=== PATIENT | male | born 1995 ===

== ENCOUNTER 2020-11-29 16:18 | Outpatient (REF) | payer OTHER, SELFPAY ==
[2020-11-29 17:19] LABS: Hematocrit 45.6 % (42-52); Mean Corpuscular HGB Conc 32.9 g/dl (31.0-36.0); Mean Corpuscular Hemoglobin 29.1 pg (27.0-33.0); Mean Corpuscular Volume 88.5 fL (80-98); Mean Platelet Volume 9.7 fL (9.4-12.4); Platelet Count 378 X10*3/uL (160-400); Red Blood Count 5.15 X10*6/uL (4.60-5.80); White Blood Count 6.3 X10*3/uL (4.8-10.8)
[2020-11-29 17:36] LABS: Anion Gap 15 (12-20); Blood Urea Nitrogen 12 mg/dL (9-16); C Reactive Protein 0.39 mg/dL (< or = 0.50); Calcium 10.1 mg/dL (8.4-10.2); Carbon Dioxide 28 mmol/L (22-29); Chloride 102 mmol/L (96-108); Estimated Glomerular Filt Rate > 60; Glucose Random 95 mg/dL (60-115); Potassium 4.5 mmol/L (3.3-5.1); Rheumatoid Factor < 15.0 IU/mL (<15.0); Sodium 140 mmol/L (135-145)
[2020-11-29 18:21] LABS: Erythrocyte Sedimentation Rate 7 MM/HR (0-15)
[2020-11-30 22:27] LABS: Anti Nuclear Antibody Screen POSITIVE (NEGATIVE)
[2020-12-01 00:01] LABS: Cyclic Citrullinated Peptide <16 UNITS
== END 2020-11-29 16:19 | disposition home or self-care (01) ==
LOC: HO.LAB 16:18
PROVIDERS: PCP Physician Assistant; Visit Provider Physician Assistant
DX: M54.2 Cervicalgia (principal); M54.5 Low back pain; M25.50 Pain in unspecified joint; I10 Essential (primary) hypertension
CPT/HCPCS: 36415; 80048; 85027; 85652; 86038; 86039; 86140; 86200; 86431

== ENCOUNTER 2024-05-15 00:52 | Emergency (ER) | payer OTHER, SELFPAY ==
[2024-05-15 01:07] VITALS: BP 141/93; PULSE 86; RESP 16; TEMP 37.4; O2SAT 98; BMI 26.6
--- NOTE | 2024-05-15 01:37 | PC.NURSE ---
Pt brought to [facility] for treatment assumed care of pt at this time. Pt A&Ox3 skin pwd respirations even unlabored. Endorsing upper abd pain x months, intermittent with associated N/V and tarry stools. Denies fever, denies abd pain. Denies ETOH or blood thinner use. Hx GERD states he hasn't had insurance for a while therefore hasn't sought treatment. Awaiting primary provider tanal, aware of plan of care.
--- NOTE | 2024-05-15 02:56 | ED_ITS ---
HPI - General Adult General Chief complaint: General Medical Stated complaint: blood in stool, gen med Time Seen by Provider: 05/15/24 02:32 Source: patient Mode of arrival: ambulatory Limitations: no limitations History of Present Illness ED Provider: HPI narrative: Patient's history of chronic gastritis on omeprazole complaining of dark stool for last several months no vomiting does have epigastric pain off and on no shortness a breath the patient does have history of hemorrhoids no history of bleeding ulcer patient never had endoscopy in the past Related Data Previous Rx's ?Medication ?Instructions ?Recorded ondansetron HCl 4 mg tablet 4 mg PO Q8H PRN nausea and 04/09/22 vomiting 7 days #21 tabs pantoprazole 40 mg tablet,delayed 40 mg PO DAILY 30 days #30 tabs 08/21/22 release sucralfate 1 gram tablet 1 g PO TID #90 tabs 05/15/24 Allergies Allergy/AdvReac Type Severity Reaction Status Date / Time No Known Allergies Allergy Verified 05/15/24 01:14 Review of Systems 2 Review of Systems: Yes all other systems are reviewed and are negative PMFSH Past Medical History Medical History Asthma GERD (gastroesophageal reflux disease) Social History Social History Housing: Apartment Patient Tobacco Use Status: Never used Tobacco e-Cigarette/Vaping Use: Never Used Second Hand Smoke Exposure: No service: No Current occupational status: employed 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 Oriented X3. No acute distress. Eyes: No pallor or icterus ENT: Pharynx normal. Oral Mucosa moist Neck: Normal inspection. Neck supple. CVS: Normal heart rate and rhythm. Pulses normal. Respiratory: No respiratory distress. Equal air entry bilateral, no wheezing/rales/rhonchi Abdomen: Soft and nontender. Bowel sounds are present, no mass palpable, no CVA tenderness rectal: No hemorrhoids palpable no stool on the finger no active bleeding Skin: Skin warm and dry. Normal skin color. Normal skin turgor. Extremities: No lower extremity edema. No calf tenderness Neuro: Oriented X 3. No motor deficit. No sensory deficit.No cerebellar signs , cranial nerves II-XII intact Medical Decision Making Medical Decision Making [facility] Narrative: Patient's H&H stable likely dark stool is from the food he is eating advised to follow with GI Lab Data [facility] Lab Attestation statement: I reviewed the patient's lab results. 05/15/24 03:17 05/15/24 03:17 Labs: Lab Results 05/15/24 Range/Units 03:17 WBC 9.5 (4.8-10.8) X10*3/uL RBC 5.07 (4.60-5.80) X10*6/uL Hgb 14.9 (14.0-18.0) g/dl Hct 43.7 (42.0-52.0) % MCV 86.2 (80.0-98.0) fL MCH 29.4 (27.0-33.0) pg MCHC 34.1 (31.0-36.0) g/dl RDW 12.0 (11.0-16.0) % Plt Count 347 (160-400) X10*3/uL MPV 9.6 (9.4-12.4) fL Immature Gran % (Auto) 1.8 H (0.0-0.4) % Neut % (Auto) 66.1 (45-73) % Lymph % (Auto) 23.3 (20-40) % [place] % (Auto) 6.8 (2-11) % Eos % (Auto) 1.2 (0-4) % Baso % (Auto) 0.8 (0-2) % Lymph # (Auto) 2.2 (1.2-4.9) X10*3/uL [place] # (Auto) 0.7 (0.1-1.2) X10*3/uL Eos # (Auto) 0.1 (0.0-0.4) X10*3/uL Baso # (Auto) 0.1 (0.0-0.2) X10*3/uL Abs Immat Gran (auto) 0.17 H (0.00-0.03) X10*3/uL Absolute Neuts (auto) 6.3 (2.0-8.3) x10*3/uL Absolute Nucleated RBC 0.000 (0.0-0.012) X10*3/uL Nucleated RBC % (auto) 0.0 (0.0-0.2) /100WBC Sodium 141 (135-145) mmol/L Potassium 4.1 (3.3-5.1) mmol/L Chloride 104 (96-108) mmol/L Carbon Dioxide 26 (22-29) mmol/L Anion Gap 15 (12-20) BUN 13 (9-16) mg/dL Creatinine 0.79 (0.5-1.4) mg/dL Estim Creat Clear Calc 117.8 Estimated GFR > 60 Random Glucose 92 (60-115) mg/dL Calcium 9.7 (8.4-10.2) mg/dL Total Bilirubin 0.5 (0.0-1.0) mg/dL AST 61 H (5-37) U/L ALT 115 H (0-40) U/L Alkaline Phosphatase 75 (39-117) U/L Total Protein 8.2 H (6.5-8.0) g/dL Albumin 4.8 (3.5-5.0) g/dL Lipase 20 (8-78) U/L Discharge Plan Discharge Clinical Impression: Gastritis Patient Disposition: Home, Self-Care Instructions: Gastritis (ED) Additional Instructions: Continue your Protonix Sucralfate 1 tablet before meals as prescribed Follow with segment assembler Prescriptions: New sucralfate 1 gram tablet 1 g PO TID Qty: 90 0RF No Action ondansetron HCl 4 mg tablet 4 mg PO Q8H PRN (Reason: nausea and vomiting) 7 Days Qty: 21 3RF pantoprazole 40 mg tablet,delayed release (DR/EC) 40 mg PO DAILY 30 Days Qty: 30 0RF Referrals: Derrick López MD [Physician] - 2 weeks Stand Alone Forms: Work/School Release Interventions: ED Discharge Assessment Last Done: 05/15/24 04:31 Discharge Date/Time: 05/15/24 04:33 Print Language: Fijian
[2024-05-15 03:17] VITALS: BP 139/88; PULSE 80; RESP 18; TEMP 36.9; O2SAT 99
[2024-05-15 03:26] LABS: Basophils Absolute Auto 0.1 X10*3/uL (0.0-0.2); Basophils Percent Auto 0.8 % (0-2); Eosinophils Absolute Auto 0.1 X10*3/uL (0.0-0.4); Eosinophils Percent Auto 1.2 % (0-4); Hematocrit 43.7 % (42.0-52.0); Hemoglobin 14.9 g/dl (14.0-18.0); Imm Gran Abs Auto 0.17 X10*3/uL (0.00-0.03); Imm Gran Pct Auto 1.8 % (0.0-0.4); Lymphocytes Absolute Auto 2.2 X10*3/uL (1.2-4.9); Lymphocytes Percent Auto 23.3 % (20-40); MANUAL DIFF FLAG NO; Mean Corpuscular HGB Conc 34.1 g/dl (31.0-36.0); Mean Corpuscular Hemoglobin 29.4 pg (27.0-33.0); Mean Corpuscular Volume 86.2 fL (80.0-98.0); Mean Platelet Volume 9.6 fL (9.4-12.4); Monocytes Absolute Auto 0.7 X10*3/uL (0.1-1.2); Monocytes Percent Auto 6.8 % (2-11); Neutrophils Absolute Auto 6.3 x10*3/uL (2.0-8.3); Neutrophils Percent Auto 66.1 % (45-73); Platelet Count 347 X10*3/uL (160-400); Red Blood Count 5.07 X10*6/uL (4.60-5.80); White Blood Count 9.5 X10*3/uL (4.8-10.8)
[2024-05-15 03:46] LABS: Alanine Aminotransferase 115 U/L (0-40); Albumin Level 4.8 g/dL (3.5-5.0); Alkaline Phosphatase 75 U/L (39-117); Anion Gap 15 (12-20); Aspartate Amino Transferase 61 U/L (5-37); Bilirubin Total 0.5 mg/dL (0.0-1.0); Blood Urea Nitrogen 13 mg/dL (9-16); Calcium 9.7 mg/dL (8.4-10.2); Carbon Dioxide 26 mmol/L (22-29); Chloride 104 mmol/L (96-108); Creatinine Clr Calc Pharmacy 117.8; Estimated Glomerular Filt Rate > 60; Glucose Random 92 mg/dL (60-115); Lipase 20 U/L (8-78); Potassium 4.1 mmol/L (3.3-5.1); Sodium 141 mmol/L (135-145); Total Protein 8.2 g/dL (6.5-8.0)
[2024-05-15 04:31] VITALS: BP 139/88; PULSE 80; RESP 18; TEMP 36.9; O2SAT 99
== END 2024-05-15 04:33 | disposition home or self-care (01) ==
PROVIDERS: Emergency Provider Internal Medicine; PCP Physician Assistant
DX: K29.70 Gastritis, unspecified, without bleeding (principal); K92.1 Melena; R10.13 Epigastric pain
CPT/HCPCS: 36415; 80053; 83690; 85025; 99283; 99284

== ENCOUNTER → 2024-05-19 14:00 | Outpatient (BNVA) | payer OTHER, SELFPAY | PROVIDERS: PCP Physician Assistant; Visit Provider Physician Assistant | DX: K27.9 Peptic ulcer, site unspecified, unspecified as acute or chronic, without hemorrhage or perforation (principal); R19.5 Other fecal abnormalities; M25.50 Pain in unspecified joint | CPT/HCPCS: 96127; 99212 ==

== ENCOUNTER 2024-07-20 13:07 | Outpatient (AMB) | payer OTHER, SELFPAY ==
[2024-07-20 13:12] VITALS: BP 133/83; PULSE 75; BMI 31.5
--- NOTE | 2024-07-20 13:12 | MHC.OFFVIS ---
Vital Signs 07/20/24 13:12 Height 5 ft 5 in Weight 189 lb 9.561 oz BMI 31.5 BP 133/83 Blood Pressure Location Lt brachial Position Sitting Pulse 75 Intake Visit Reasons: Peptic Ulcer & Fecal Abnormalities Intake Note: Enrique presents in the office as a new patient. CC: States that he has always had issues with his gut. He has not had a solid BM in over a month. Pains in the abdomen - everything he eats he will have pains and diarrhea 15 minutes after. No blood at the moment but at one point there was. Molded Grid And Parts Inspector Required: No Allergies shellfish derived Allergy (Mild, Verified 07/20/24 13:21) Unknown HPI HPI Peptic Ulcer & Fecal Abnormalities: Details: HPI 29 yr old m here for assessment He had noted acid reflux issues for few years was on PPI he was a heavy drinker and smoker in past--no longer doing these for 1 yr he had black stools and admission in the past, but never had EGD he has noted soft stools or liquid for 1 month, worse after eating pain coming and going, throbbing he can have issues wt nausea, no blood recently, no coffee grounds he takes motrin prn, once day for 1 month no fevers he has bad joint pains in hands serenity at night, dx with RA --but not followed up with rheum ROS: Constitutional : No Weight loss, No Fever, No Chills ENT/Mouth : No sore throat, No Rhinorrhea Eyes: No Swelling, No Redness Cardiovascular : No Chest Pain, No SOB, No Edema Respiratory : No Cough, No Sputum, No Wheezing Gastrointestinal : see HPI Genitourinary : NO Dysuria, No Urinary Frequency, No Hematuria, No Urgency Musculoskeletal : + joint pain, No Myalgias, No Joint Swelling Skin : No Skin Lesions, No rash Neuro : No Weakness, No Numbness, No Dizziness, No Headache Psych : No Anxiety/Panic, No Depression Heme/Lymph: No Bruising, No Lymphadenopathy Endocrine : No Polyuria, No Polydipsia All other systems reviewed and are negative. 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 VITAL SIGNS:see workflow HEENT: Nonicteric sclerae, PERRLA, EOMI. Oropharynx clear. Moist mucous membranes. Conjunctivae appear well perfused. No thyroid mass. CHEST: Chest wall is nontender. HEART: Regular rate and rhythm without murmurs. LUNGS: Clear to auscultation bilaterally. ABDOMEN: Soft, positive bowel sounds, tender, no organomegaly.no flank tenderness SKIN: No rash, no excessive bruising, petechiae, or purpura. NEUROLOGIC: Cranial nerves II-XII intact without motor/sensory deficit. Psych: normal affect A/P: 1/ Upper abdominal pain, with abn bowel habit, strong FH of CRC, ddx: PUD, Crohns, polyps and mechanical etiology, nsaid related injury 2/ abn LFT ? 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 - Other specified abnormal findings of blood chemistry Lipase Today R7 - Other specified abnormal findings of blood chemistry Hepatitis A,B,C Profile Today - Other specified abnormal findings of blood chemistry Smooth Muscle Antibody Today - Other specified abnormal findings of blood chemistry Comprehensive Met. Panel Today K75.81 - Nonalcoholic steatohepatitis (BRUCE), R7. - Other specified abnormal findings of blood chemistry US abdomen mcnamara w elastography Today K74.60 - Unspecified cirrhosis of liver, K75.81 - Nonalcoholic steatohepatitis (BRUCE), R7. - Other specified abnormal findings of blood chemistry Soluble Liver Ag Autoantibody Today - Other specified abnormal findings of blood chemistry Hepatitis C Genotype Today - Other specified abnormal findings of blood chemistry Alpha 1 Anti-trypsin Today - Other specified abnormal findings of blood chemistry Ceruloplasmin Today - Other specified abnormal findings of blood chemistry Medications: New sodium,potassium,mag sulfates 17.5-3.13-1.6 gram (Suprep Bowel Prep Kit) DILUTE; drink 1/2 at 6-8 pm and half at 11 PM- 1AM 354 mL 0RF Refilled ondansetron 8 mg PO Q12H 10 days PRN 30 tabs 0RF nausea and vomiting K27.9 - Peptic ulcer, site unspecified, unspecified as acute or chronic, without hemorrhage or perforation Coding Level of Care Code New Pt Level 4 (09058) Diagnoses Abnormal LFTs
== END 2024-07-20 13:44 | disposition home or self-care (01) ==
LOC: HO.HGI 13:08
PROVIDERS: PCP Physician Assistant; Visit Provider Internal Medicine Gastroenterology
DX: R79.89 Other specified abnormal findings of blood chemistry (principal)
CPT/HCPCS: 99204

== ENCOUNTER → 2024-07-20 13:07 | Outpatient (BNVA) | payer OTHER, SELFPAY | PROVIDERS: PCP Physician Assistant; Visit Provider Internal Medicine Gastroenterology | DX: K75.81 Nonalcoholic steatohepatitis (NASH) (principal); R79.89 Other specified abnormal findings of blood chemistry | CPT/HCPCS: 99202 ==

== ENCOUNTER → 2024-08-11 12:57 | Outpatient (BNVA) | payer OTHER, SELFPAY | PROVIDERS: PCP Physician Assistant; Visit Provider Internal Medicine Gastroenterology ==

== ENCOUNTER 2024-08-11 13:55 | Outpatient (REF) | payer OTHER, SELFPAY ==
--- OUTSIDE RECORDS SUMMARY | 2024-08-13 16:37 | XMS_ITS | Clinical Summary ---
Author Organization [facility] Address [address] [place] [address] Phone Care Team Providers Care Dynamometer Tester Name Role Phone Quinton Casey Primary Care Provider [phone] Allergies No known active allergies Medications methocarbamoL (ROBAXIN) 750 mg tablet Take 1 tablet (750 mg total) by mouth 4 (four) times a day for 10 days. 20 each 08/13/2024 Active Encounters Date Type Department Care Team Description 08/12/2024 7:47 PM EDT - 08/13/2024 12:41 AM EDT Emergency [facility] Emergency [address] [place] [address] Lumbar strain, initial encounter (Primary Dx) Discharge Disposition: Home or Self Care from Last 3 Months Social History Tobacco Use Types Packs/Day Years Used Date Smoking Tobacco: Never Assessed Sex and Gender Information Value Date Recorded Sex Assigned at Male 08/12/2024 8:16 PM EDT Legal Sex Male 4:37 AM EST Gender Identity Male 08/12/2024 8:16 PM EDT Sexual Orientation Straight 08/12/2024 8: 16 PM EDT Last Filed Vital Signs Vital Sign Reading Time Taken Comments Blood Pressure 134/92 08/12/2024 11:10 PM EDT Pulse 80 08/12/2024 11:10 PM EDT Temperature 36.6 ??C (97.9 ??F) 08/12/2024 11:10 PM E DT Respiratory Rate 16 08/12/2024 11:10 PM EDT Oxygen Saturation 99% 08/12/2024 11:10 PM EDT Inhaled Oxygen Concentration - - Weight 84.8 kg (187 lb) 08/12/2024 6:41 PM EDT Height 165.1 cm (5' 5 ) 08/12/2024 6:41 PM EDT Body Mass Index 31.12 08/12/2024 6:41 PM EDT Plan of Treatment Health Maintenance Due Date Last Done Comments DTaP,Tdap,and Td Vaccines (1 - Tdap) 2012 Hepatitis B Vaccines (1 of 3 - 19+ 3-dose series) 2012 Depression Screening 03/18/2022 HIV Screening 03/18/2022 Hepatitis C Screening 03/18/2022 Social Influencers of Health Screening 03/18/2022 COVID-19 Vaccine (2023-2 5 season) 2023 Influenza Vaccine (Season Ended) 2024 HIB Vaccines Aged Out No longer eligi ble based on patient's age to complete this topic HPV Vaccines Aged Out No longer eligi ble based on patient's age to complete this topic Hepatitis A Vaccines Aged Out No long er eligible based on patient's age to complete this topic IPV Vaccines Aged Out No longer eligi ble based on patient's age to complete this topic MMR Vaccines Aged Out No longer eligi ble based on patient's age to complete this topic Meningococcal ACWY Vaccine Aged Out N o longer eligible based on patient's age to complete this topic Meningococcal B Vaccine Aged Out No l onger eligible based on patient's age to complete this topic Pneumococcal Vaccine: Pediat rics (0 to 5 Years) and At-Risk Patients (6 to 64 Years) Aged Out No longer eligible b ased on patient's age to complete this topic RSV Immunization Patients Un malissa 20 months Aged Out No longer eligible b ased on patient's age to complete this topic Varicella Vaccines Aged Out No longer eligible based on patient's age to complete this topic Procedures Procedure Name Priority Date/Time Associated Diagnosis Comments US RETROPERITONEAL COMPLETE STAT 08/12/2024 10:58 PM EDT CBC WITH AUTO DIFFERENTIAL STAT 08/12/2024 10:25 PM EDT [facility] URINE CULTURE TUBE STAT 08/13/19 10:25 PM EDT URINALYSIS WITH REFLEX MICROSCOPIC AND CULTURE STAT 08/12/2024 10:25 PM EDT COMPREHENSIVE METABOLIC PANEL STAT 08/12/2024 10:25 PM EDT CBC AND DIFFERENTIAL STAT 08/12/2024 10:25 PM EDT URINALYSIS WITH REFLEX MICROSCOPIC AND CULTURE STAT 08/12/2024 10:25 PM EDT from Last 3 Months Results * US Retroperitoneal Complete (08/12/2024 10:58 PM EDT) Anatomical Region Laterality Modality Body Ultrasound 08/12/2024 11:3 3 PM EDT Impressions 08/12/2024 11:33 PM EDT Impression: No significant abnormalities. This document has been electronically signed by: Kirk Ordonez MD on 08/12/2024 23:33:25 Narrative 08/12/2024 11:33 PM EDT INDICATION: pain US renal Comparison: None Findings: Right kidney 9.9 cm length. No significant focal abnormality. Left kidney 9.3 cm length. No significant focal abnormality. No bilateral hydronephrosis. Normal bilateral renal echogenicity. Urinary bladder grossly unremarkable. Bilateral ureteral jets visualized. Procedure Note Kirk Ordonez MD - 08/12/2024 INDICATION: pain US renal Comparison: None Findings: Right kidney 9.9 cm length. No significant focal abnormality. Left kidney 9.3 cm length. No significant focal abnormality. No bilateral hydronephrosis. Normal bilateral renal echogenicity. Urinary bladder grossly unremarkable. Bilateral ureteral jets visualized. IMPRESSION: Impression: No significant abnormalities. This document has been electronically signed by: Kirk Ordonez MD on 08/12/2024 23:33:25 us Henrietta NUÑEZ IMG US PROCEDURES Final Re sult * (ABNORMAL) Urinalysis with reflex microscopic and culture (08/12/2024 10:25 PM EDT) Specific [place] Urine 1.026 1.003 - 1.030 LAB URINALYSIS - AUTOMATED METHOD 08/12/2024 11:[address] [facility] pH, Urine 7.5 5.0 - 8.0 pH LAB URINALYSIS - AUTOMATED METHOD 08/12/2024 11:[address] [facility] Leukocytes, Urine Negative Negative LAB URINALYSIS - AUTOMATED METHOD 08/12/2024 11:[address] [facility] Nitrite, Urine Negative Negative LAB URINALYSIS - AUTOMATED METHOD 08/12/2024 11:[address] [facility] Protein, Urine Trace <=Trace mg/dL LAB URINALYSIS - AUTOMATED METHOD 08/12/2024 11:[address] [facility] Glucose, Urine Negative Negative mg/dL LAB URINALYSIS - AUTOMATED METHOD 08/12/2024 11:[address] [facility] Ketones, Urine Trace(A) Negative mg/dL LAB URINALYSIS - AUTOMATED METHOD 08/12/2024 11:[address] [facility] Urobilinogen, Urine 1.0 0.2 - 1.0 mg/dL LAB URINALYSIS - AUTOMATED METHOD 08/12/2024 11:[address] [facility] Bilirubin, Urine Negative Negative LAB URINALYSIS - AUTOMATED METHOD 08/12/2024 11:[address] [facility] Blood, Urine Negative Negative LAB URINALYSIS - AUTOMATED METHOD 08/12/2024 11:[address] [facility] Urine Urine specimen obtained by clean catch procedure / Unknown Non-blood Collection / Unknown 08/12/2024 10:25 PM EDT 08/12/2024 11:05 PM EDT us Henrietta NUÑEZ LAB URINE ORDERABLES Final Result [facility] [address] [place] [address], [place] [phone] * [facility] urine culture tube (08/12/2024 10:25 PM EDT) [facility] Extra Tube Hold for add-ons. 08/13/2024 1:01 AM EDT [facility] Comment:Auto resulted. Urine Urine specimen obtained by clean catch procedure / Unknown Non-blood Collection / Unknown 08/12/2024 10:25 PM EDT 08/12/2024 11:05 PM EDT us Henrietta NUÑEZ LAB URINE ORDERABLES Final Result [facility] [address] [place] [address], [place] [phone] * (ABNORMAL) CBC auto differential (08/12/2024 10:25 PM EDT) [facility] WBC 9.8 4.8 - 10.8 K/mcL LAB HEMETOLOGY METHOD 08/12/2024 11:16 PM EDT [facility] RBC 4.80 4.50 - 5.50 M/mcL LAB HEMETOLOGY METHOD 08/12/2024 11:16 PM EDT [facility] Hemoglobin 14.2 13.5 - 17.5 g/dL LAB HEMETOLOGY METHOD 08/12/2024 11:16 PM EDT [facility] Hematocrit 41.9(L) 42.0 - 54.0 % LAB HEMETOLOGY METHOD 08/12/2024 11:16 PM EDT [facility] MCV 88.2 79.0 - 98.0 FL LAB HEMETOLOGY METHOD 08/12/2024 11:16 PM EDT [facility] MCH 29.9 27.0 - 32.0 pcg LAB HEMETOLOGY METHOD 08/12/2024 11:16 PM EDT [facility] MCHC 33.9 32.0 - 37.0 g/dL LAB HEMETOLOGY METHOD 08/12/2024 11:[address] [facility] RDW 12.1 11.0 - 15.0 % LAB HEMETOLOGY METHOD 08/12/2024 11:[address] [facility] Platelets 399 130 - 400 K/mcL LAB HEMETOLOGY METHOD 08/12/2024 11:[address] [facility] MPV 9.7 7.0 - 11.0 FL LAB HEMETOLOGY METHOD 08/12/2024 11:[address] [facility] NRBC 0.0 <1.0 % LAB HEMETOLOGY METHOD 08/12/2024 11:[address] [facility] NRBC Absolute 0.00 <0.10 K/mcL LAB HEMETOLOGY METHOD 08/12/2024 11:[address] [facility] Neutrophils Relative 63.7 % LAB HEMETOLOGY METHOD 08/12/2024 11:[address] [facility] Lymphocytes Relative 23.8 % LAB HEMETOLOGY METHOD 08/12/2024 11:[address] [facility] Monocytes Relative 7.1 % LAB HEMETOLOGY METHOD 08/12/2024 11:[address] [facility] Eosinophils Relative 2.9 % LAB HEMETOLOGY METHOD 08/12/2024 11:[address] [facility] Basophils Relative 0.9 % LAB HEMETOLOGY METHOD 08/12/2024 11:[address] [facility] Immature Granulocytes Relative 1.6 % LAB HEMETOLOGY METHOD 08/12/2024 11:[address] [facility] Neutrophils Absolute 6.24 1.50 - 7.00 K/mcL LAB HEMETOLOGY METHOD 08/12/2024 11:[address] [facility] Lymphocytes Absolute 2.33 1.00 - 5.00 K/mcL LAB HEMETOLOGY METHOD 08/12/2024 11:16 PM EDT [facility] Monocytes Absolute 0.70 0.20 - 1.00 K/[facility] LAB HEMETOLOGY METHOD 08/12/2024 11:16 PM EDT [facility] Eosinophils Absolute 0.28 0.00 - 0.50 K/[facility] LAB HEMETOLOGY METHOD 08/12/2024 11:16 PM EDT [facility] Basophils Absolute 0.09 0.00 - 0.20 K/[facility] LAB HEMETOLOGY METHOD 08/12/2024 11:16 PM EDT [facility] Immature Granulocytes Absolute 0.16(H) 0.00 - 0.03 K/[facility] LAB HEMETOLOGY METHOD 08/12/2024 11:16 PM EDT [facility] Blood Venous blood specimen / Unknown Venipuncture / Unknown 08/12/2024 10:25 PM EDT 08/12/2024 11:05 PM EDT us Henrietta NUÑEZ LAB BLOOD ORDERABLES Final Result [facility] [address] [place] [address], * (ABNORMAL) Comprehensive metabolic panel (08/12/2024 10:25 PM EDT) Sodium 138 133 - 145 mmol/L LAB CHEMISTRY METHOD 08/12/2024 11:52 PM EDT [facility] Potassium 3.9 3.5 - 5.5 mmol/L LAB CHEMISTRY METHOD 08/12/2024 11:52 PM EDT [facility] Chloride 104 96 - 110 mmol/L LAB CHEMISTRY METHOD 08/12/2024 11:52 PM EDT [facility] CO2 26 21 - 32 mmol/L LAB CHEMISTRY METHOD 08/12/2024 11:52 PM EDT [facility] Anion Gap 8 3 - 11 LAB CHEMISTRY METHOD 08/12/2024 11:[address] [facility] Glucose 104(H) 70 - 100 mg/dL LAB CHEMISTRY METHOD 08/12/2024 11:[address] [facility] BUN 13 5 - 25 mg/dL LAB CHEMISTRY METHOD 08/12/2024 11:[address] [facility] Creatinine 0.85 0.70 - 1.30 mg/dL LAB CHEMISTRY METHOD 08/12/2024 11:[address] [facility] eGFR 119 >=60 mL/min/1. 73m2 LAB CHEMISTRY METHOD 08/12/2024 11:[address] [facility] Comment:Calculation based on the??Chronic Kidney Disease Epidemiology Collaboration (CKD-EPI) equation refit??without adjustment for race. BUN/Creatinine Ratio 15.3 LAB CHEMISTRY METHOD 08/12/2024 11:[address] [facility] Calcium 9.2 8.5 - 10.5 mg/dL LAB CHEMISTRY METHOD 08/12/2024 11:[address] [facility] AST (SGOT) 28 10 - 42 unit/L LAB CHEMISTRY METHOD 08/12/2024 11:[address] [facility] ALT (SGPT) 68(H) 10 - 60 unit/L LAB CHEMISTRY METHOD 08/12/2024 11:[address] [facility] Alkaline Phosphatase 78 42 - 121 unit/L LAB CHEMISTRY METHOD 08/12/2024 11:[address] [facility] Total Protein 7.8 6.0 - 8.0 g/dL LAB CHEMISTRY METHOD 08/12/2024 11:[address] [facility] Albumin 4.4 3.2 - 5.0 g/dL LAB CHEMISTRY METHOD 08/12/2024 11:[address] [facility] Total Bilirubin 0.3 0.0 - 1.4 mg/dL LAB CHEMISTRY METHOD 08/12/2024 11:52 PM EDT [facility] Blood Venous blood specimen / Unknown Venipuncture / Unknown 08/12/2024 10:25 PM EDT 08/12/2024 11:05 PM EDT Henri[facility] NUÑEZ LAB BLOOD ORDERABLES Final Result [facility] ([facility] [address] [place] [address], [place] [phone] from Last 3 Months Insurance MEDICAID - [place] Care Teams Dynamometer Tester Relationship Specialty Start Date End Date Quinton Casey PA [address] [place] [id number] PCP - General Physician Pipe Maker 08/12/24
--- OUTSIDE RECORDS SUMMARY | 2024-08-13 16:37 | XMS_ITS | Encounter Summary ---
Author Organization [facility] Address [address] [place] [address] Care Team Providers Care Aquatic Scientist Name Role Phone Quinton Casey Primary Care Provider [phone] Reason for Visit * Reason Comments Back Pain Encounter Details Date Type Department Care Team (Late st Contact Info) Description 08/12/2024 7:47 PM EDT - 08/13/2024 12:41 AM EDT Emergency [facility] Emergency [address] [place] [address] Lumbar strain, initial encounter (Primary Dx) Discharge Disposition: Home or Self Care Social History Tobacco Use Types Packs/Day Years Used Date Smoking Tobacco: Never Assessed Sex and Gender Information Value Date Recorded Sex Assigned at Male 08/12/2024 8:16 PM EDT Legal Sex Male 4:37 AM EST Gender Identity Male 08/12/2024 8:16 PM EDT Sexual Orientation Straight 08/12/2024 8: 16 PM EDT documented as of this encounter Last Filed Vital Signs Vital Sign Reading [...] Mass Index 31.12 08/12/2024 6:41 PM EDT documented in this encounter Discharge Instructions * Discharge Instructions* SAVANNAH Parham - 08/13/2024 12:11 AM EDT We did do an ultrasound today which shows no abnormalities with your kidneys. Your blood work was normal today. Your urine did not show any evidence of infection. I believe this is likely muscular. I will be sending a muscle relaxer to your pharmacy. Please do not take while driving or going into work/working as it can make you sleepy. Also recommend anti-inflammatory such as ibuprofen, also known as Motrin. You may also take Tylenol. It was a pleasure caring for you today in the emergency department. Please return to the emergency department if you begin to experience any new onset chest pain, shortness of breath, uncontrolled fevers, severe abdominal pain, loss of consciousness, uncontrolled vomiting, uncontrolled diarrhea, or for any other reason you feel is necessary. Please follow-up with your PCP about this visit. Examination and treatment you received in the emergency department has been rendered on an EMERGENCY basis only. It is not intended to be a substitute for or an effort to provide complete medical care. You should follow-up with your primary care provider. Please report to your physician any new or remaining problems, because it is impossible to recognize and treat all elements of injury or illness in a single emergency department visit. If you do not have a primary care provider or require a referral, a follow-up doctor contamination consultant for the emergency department will be provided in your discharge packet. In the event that you're unable to obtain a followup appointment in a timely fashion, OR you are not getting any better, OR you are getting worse, OR you develop any symptoms of concern, please return here immediately for further evaluation. The emergency department is open 24 hours a day, 7 days aweek. Your discharge report is based on information that was available when you were in the emergency department If you do not have a primary care provider, please contact one of the following to make arrangements to follow up. Jolanta Bolden Jolanta [place] Jolanta Weathers Jolanta Reynaga documented in this encounter Medications at Time of Discharge methocarbamoL (ROBAXIN) 750 mg tablet Take 1 tablet (750 mg total) by mouth 4 (four) times a day for 10 days. 20 each 08/13/2024 08/23/2024 documented as of this encounter Ordered Prescriptions Prescription Sig Dispense Quantity Refills Last Filled Start Date End Date methocarbamoL (ROBAXIN) 750 mg tablet Take 1 tablet (750 mg total) by mouth 4 (four) times a day for 10 days. 20 each 08/13/2024 08/23/2024 documented in this encounter Discharge Disposition Disposition Code Departure Means Destination Comment s Home or Self Care documented in this encounter Progress Notes * Delia Vo RN - 08/12/2024 6:40 PM EDT Patient states 1 month ago bent over in the shower and having diffuse low back pain. States his gi doctor ordered him a kidney ultrasound for it ??? But states his insurance denied it because he has normal kidney studies. Patient states pain is worse with movement , especially bending over. Pain radiates down legs as well. Denies bowel or bladder incontinence documented in this encounter Plan of Treatment Not on file documented as of this encounter Procedures Procedure Name Priority Date/Time Associated Diagnosis Comments US RETROPERITONEAL COMPLETE STAT 08/12/2024 10:58 PM EDT URINALYSIS WITH REFLEX MICROSCOPIC AND CULTURE STAT 08/12/2024 10:25 PM EDT [facility] URINE CULTURE TUBE STAT 08/13/19 10:25 PM EDT CBC WITH AUTO DIFFERENTIAL STAT 08/12/2024 10:25 PM EDT URINALYSIS WITH REFLEX MICROSCOPIC AND CULTURE STAT 08/12/2024 10:25 PM EDT CBC AND DIFFERENTIAL STAT 08/12/2024 10:25 PM EDT COMPREHENSIVE METABOLIC PANEL STAT 08/12/2024 10:25 PM EDT documented in this encounter Results * US Retroperitoneal Complete (08/12/2024 10:58 [...] US PROCEDURES Final Re sult * (ABNORMAL) CBC auto differential (08/12/2024 10:25 PM EDT) WBC 9.8 4.8 - 10.8 K/mcL LAB [...] [place] [facility] M[facility] 29.9 27.0 - 32.0 pcg LAB HEMETOLOGY METHOD 08/12/2024 11:16 PM EDT [facility] MCHC 33.9 32.0 - 37.0 g/dL LAB HEMETOLOGY METHOD [facility] RDW 12.1 11.0 - 15.0 % LAB HEMETOLOGY METHOD 08/12/2024 11:16 PM [facility] Platelets 399 130 - 400 K/mcL LAB HEMETOLOGY METHOD 08/12/2024 11:16 PM EDT [facility] MPV 9.7 7.0 - 11.0 FL LAB HEMETOLOGY METHOD [facility] NRBC 0.0 <1.0 % LAB HEMETOLOGY METHOD 08/12/2024 11:16 PM [facility] NRBC Absolute 0.00 <0.10 K/mcL LAB HEMETOLOGY METHOD 08/12/2024 11:16 PM EDT [facility] Neutrophils Relative 63.7 % LAB HEMETOLOGY METHOD 08/12/2024 11:16 PM EDT [facility] Lymphocytes Relative 23.8 % LAB HEMETOLOGY METHOD [facility] Monocytes Relative 7.1 % LAB HEMETOLOGY METHOD 08/12/2024 11:16 PM EDT [facility] Eosinophils Relative 2.9 % LAB HEMETOLOGY METHOD 08/12/2024 11:16 PM EDT [facility] Basophils Relative 0.9 % LAB HEMETOLOGY METHOD 08/12/2024 11:16 PM EDT [facility] Immature Granulocytes Relative 1.6 % LAB HEMETOLOGY METHOD 08/12/2024 11:16 PM EDT [facility] Neutrophils Absolute 6.24 1.50 - 7.00 K/mcL LAB HEMETOLOGY METHOD 08/12/2024 11:16 PM EDT [facility] Lymphocytes Absolute 2.33 1.00 - 5.00 K/mcL LAB HEMETOLOGY METHOD 08/12/2024 11:16 PM EDT [facility] Monocytes Absolute 0.70 0.20 - 1.00 K/mcL LAB HEMETOLOGY METHOD 08/12/2024 11:16 PM EDT [facility] Eosinophils Absolute 0.28 0.00 - 0.50 K/mcL LAB HEMETOLOGY METHOD 08/12/2024 11:16 PM EDT [facility] Basophils Absolute 0.09 0.00 - 0.20 K/mcL LAB HEMETOLOGY METHOD 08/12/2024 11:16 PM EDT [facility] Immature Granulocytes Absolute 0.16(H) 0.00 - 0.03 K/mcL LAB HEMETOLOGY METHOD 08/12/2024 11:16 PM EDT [facility] Blood Venous blood specimen / Unknown Venipuncture / Unknown 08/12/2024 10:25 PM EDT 08/12/2024 11:05 PM EDT us Henrietta NUÑEZ LAB BLOOD ORDERABLES Final Result [facility] [address] [place] [address], * [facility] urine culture tube (08/12/2024 10:25 PM EDT) Pathologist [facility] Extra Tube Hold for add-ons. 08/13/2024 1:01 AM EDT [facility] Comment:Auto resulted. Urine Urine specimen obtained by clean catch procedure / Unknown Non-blood Collection / Unknown 08/12/2024 10:25 PM EDT 08/12/2024 11:05 PM EDT us Henrietta NUÑEZ LAB URINE ORDERABLES Final Result [facility] [address] [place] [address], [place] [phone] * (ABNORMAL) Urinalysis with reflex microscopic and culture (08/12/2024 10:25 PM EDT) [facility] Specific [place] Urine 1.026 1.003 - 1.030 LAB URINALYSIS - AUTOMATED METHOD 08/12/2024 11:14 PM [facility] pH, Urine 7.5 5.0 - 8.0 pH LAB URINALYSIS - AUTOMATED METHOD 08/12/2024 11:14 PM [facility] Leukocytes, Urine Negative Negative LAB URINALYSIS - AUTOMATED METHOD 08/12/2024 11:14 PM [facility] Nitrite, Urine Negative Negative LAB URINALYSIS - AUTOMATED METHOD 08/12/2024 11:14 PM [facility] Protein, Urine Trace <=Trace mg/dL LAB URINALYSIS - AUTOMATED METHOD 08/12/2024 11:14 PM [facility] Glucose, Urine Negative Negative mg/dL LAB URINALYSIS - AUTOMATED METHOD 08/12/2024 11:14 PM [facility] Ketones, Urine Trace(A) Negative mg/dL LAB URINALYSIS - AUTOMATED METHOD 08/12/2024 11:14 PM [facility] Urobilinogen, Urine 1.0 0.2 - 1.0 mg/dL LAB URINALYSIS - AUTOMATED METHOD 08/12/2024 11:14 PM EDT [facility] Bilirubin, Urine Negative Negative LAB URINALYSIS - AUTOMATED METHOD 08/12/2024 11:14 PM EDT [facility] Blood, Urine Negative Negative LAB URINALYSIS - AUTOMATED METHOD 08/12/2024 11:14 PM EDT [facility] Urine Urine specimen obtained by clean catch procedure / Unknown Non-blood Collection / Unknown 08/12/2024 10:25 PM EDT 08/12/2024 11:05 PM EDT us Henrietta NUÑEZ LAB URINE ORDERABLES Final Result [facility] [address] [place] [address], * (ABNORMAL) Comprehensive metabolic panel (08/12/2024 10:25 PM EDT) Sodium 138 133 - 145 mmol/L LAB CHEMISTRY METHOD 08/12/2024 11:52 PM [facility] Potassium 3.9 3.5 - 5.5 mmol/L LAB CHEMISTRY METHOD 08/12/2024 11:52 PM [facility] Chloride 104 96 - 110 mmol/L LAB CHEMISTRY METHOD 08/12/2024 11:52 PM [facility] CO2 26 21 - 32 mmol/L LAB CHEMISTRY METHOD 08/12/2024 11:52 PM [facility] Anion Gap 8 3 - 11 LAB CHEMISTRY METHOD 08/12/2024 11:52 PM [facility] Glucose 104(H) 70 - 100 mg/dL LAB CHEMISTRY METHOD 08/12/2024 11:52 PM [facility] BUN 13 5 - 25 mg/dL LAB CHEMISTRY METHOD 08/12/2024 11:52 PM [facility] Creatinine 0.85 0.70 - 1.30 mg/dL LAB CHEMISTRY METHOD 08/12/2024 11:52 PM T [facility] eGFR 119 >=60 mL/min/1. 73m2 LAB CHEMISTRY METHOD 08/12/2024 11:52 PM [facility] Comment:Calculation based on the??Chronic Kidney Disease Epidemiology Collaboration (CKD-EPI) equation refit??without adjustment for race. BUN/Creatinine Ratio 15.3 LAB CHEMISTRY METHOD 08/12/2024 11:52 PM EDT [facility] Calcium 9.2 8.5 - 10.5 mg/dL LAB CHEMISTRY METHOD 08/12/2024 11:52 PM [facility] AST (SGOT) 28 10 - 42 unit/L LAB CHEMISTRY METHOD 08/12/2024 11:52 PM [facility] ALT (SGPT) 68(H) 10 - 60 unit/L LAB CHEMISTRY METHOD 08/12/2024 11:52 PM [facility] Alkaline Phosphatase 78 42 - 121 unit/L LAB CHEMISTRY METHOD 08/12/2024 11:52 PM [facility] Total Protein 7.8 6.0 - 8.0 g/dL LAB CHEMISTRY METHOD 08/12/2024 11:52 PM [facility] Albumin 4.4 3.2 - 5.0 g/dL LAB CHEMISTRY METHOD 08/12/2024 11:52 PM [facility] Total Bilirubin 0.3 0.0 - 1.4 mg/dL LAB CHEMISTRY METHOD 08/12/2024 11:52 PM [facility] Blood Venous blood specimen / Unknown Venipuncture / Unknown 08/12/2024 10:25 PM EDT 08/12/2024 11:05 PM EDT us Henrietta NUÑEZ LAB BLOOD ORDERABLES Final Result [facility] [address] [place] [address], documented in this encounter Visit Diagnoses Diagnosis Lumbar strain, initial encounter- Primary documented in this encounter Administered Medications Inactive Administered Medications - up to 3 most recent administrations Medication Order MAR Action Action Date Dose Rate Site ketorolac (TORADOL) injection 15 mg 15 mg, intravenous, Once, On Sat08/12/24 at 2202, For 1 dose Given 08/12/2024 11:06 PM EDT 15 mg ondansetron (PF) (ZOFRAN) injection 4 mg 4 mg, intravenous, Once, On Sat08/12/24 at 2202, For 1 dose Given 08/12/2024 11:05 PM EDT 4 mg sodium chloride 0.9 % bolus 1,000 mL 1,000 mL, intravenous, at 2,000 mL/hr, Administer over 30 Minutes, Once, On Sat08/12/24 at 2202, For 1 dose New Bag 08/12/2024 11:04 PM EDT 1,000 mL 2000 mL/hr documented in this encounter Active and Recently Administered Medications Times are shown in EDT. Scheduled Medication Order 08/11/2024 08/12/2024 08/13/2024 ketorolac (TORADOL) injection 15 mg (COMPLETED) 15 mg, intravenous, Once, On Sat08/12/24 at 2202, For 1 dose 230 (Given - Provider: Lorie Rodriguez, LIZ) ondansetron (PF) (ZOFRAN) injection 4 mg (COMPLETED) 4 mg, intravenous, Once, On Sat08/12/24 at 2202, For 1 dose 230 (Given - Provider: Lorie Rodriguez, RN) sodium chloride 0.9 % bolus 1,000 mL (COMPLETED) 1,000 mL, intravenous, at 2,000 mL/hr, Administer over 30 Minutes, Once, On Sat08/12/24 at 2202, For 1 dose 2304 (New Bag - Provider: Lorie Rodriguez, RN) 0040 (Stopped - Provider: Lorie Rodriguez, RN) documented in this encounter Care Teams Aquatic Scientist Relationship Specialty Start Date End Date Quinton Casey PA [address] [place] [phone] PCP - General Physician Journalism Intern 08/12/24 documented as of this encounter
[2024-08-14 09:14] LABS: H Pylori Breath Test Negative (Negative)
== END 2024-08-13 14:36 | disposition home or self-care (01) ==
LOC: HO.LNP 13:55
PROVIDERS: Visit Provider Internal Medicine Gastroenterology
DX: R79.89 Other specified abnormal findings of blood chemistry (principal)
CPT/HCPCS: 83013

== ENCOUNTER 2024-08-18 13:50 | Outpatient (REF) | payer OTHER, SELFPAY ==
[2024-08-18 15:14] LABS: MANUAL DIFF FLAG NO
--- OUTSIDE RECORDS SUMMARY | 2024-08-18 16:06 | XMS_ITS | Clinical Summary ---
Author Organization [facility] Address [address] [place] [address] Phone Care Team Providers Care Habitat Management Coordinator Name Role Phone Quinton Casey Primary Care Provider [phone]- [phone] Allergies No known active allergies Medications methocarbamoL (ROBAXIN) 750 mg tablet Take 1 tablet (750 mg total) by mouth 4 (four) times a day for 10 days. 20 each 08/13/2024 Active Encounters Date Type Department Care Team Description 08/12/2024 7:47 PM EDT - 08/13/2024 12:41 AM EDT Emergency [facility] Emergency [address] [place] [address] Lumbar strain, initial encounter (Primary [...] and culture (08/12/2024 10:25 PM EDT) Specific [place] Urine 1.026 1.003 - 1.030 LAB URINALYSIS - AUTOMATED METHOD 08/12/2024 11:14 PM [facility] pH, Urine 7.5 5.0 - 8.0 pH LAB URINALYSIS - AUTOMATED METHOD 08/12/2024 11:14 PM [facility] Leukocytes, Urine Negative Negative LAB URINALYSIS - AUTOMATED METHOD 08/12/2024 11:14 PM [facility] Nitrite, Urine Negative Negative LAB URINALYSIS - AUTOMATED METHOD 08/12/2024 11:14 PM [facility] Protein, Urine Trace <=Trace mg/dL LAB URINALYSIS - AUTOMATED METHOD 08/12/2024 11:14 PM [facility] Glucose, Urine Negative Negative mg/dL LAB URINALYSIS - AUTOMATED METHOD 08/12/2024 11:14 PM [facility] Ketones, Urine Trace(A) Negative mg/dL LAB URINALYSIS - AUTOMATED METHOD 08/12/2024 11:14 PM [facility] Urobilinogen, Urine 1.0 0.2 - 1.0 mg/dL LAB URINALYSIS - AUTOMATED METHOD 08/12/2024 11:14 PM [facility] Bilirubin, Urine Negative Negative LAB URINALYSIS - AUTOMATED METHOD 08/12/2024 11:14 PM [facility] Blood, Urine Negative Negative LAB URINALYSIS - AUTOMATED METHOD 08/12/2024 11:14 PM [facility] Urine Urine specimen obtained by clean catch procedure / Unknown Non-blood Collection / Unknown 08/12/2024 10:25 PM EDT 08/12/2024 11:05 PM EDT us Henrietta NUÑEZ LAB URINE ORDERABLES Final Result [facility] [address] [place] [address], [place] [phone] * [facility] urine culture tube (08/12/2024 10:25 PM EDT) [facility] Extra Tube Hold for add-ons. 08/13/2024 1:01 AM EDT [facility] Comment:Auto resulted. Urine Urine specimen obtained by clean catch procedure / Unknown Non-blood Collection / Unknown 08/12/2024 10:25 PM EDT 08/12/2024 11:05 PM EDT us Henrietta NUÑEZ LAB URINE ORDERABLES Final Result [facility] [address] [place] [address], [place] [phone] * (ABNORMAL) CBC auto differential (08/12/2024 10:25 PM EDT) [facility] WBC 9.8 4.8 - 10.8 K/mcL LAB HEMETOLOGY METHOD 08/12/2024 11:16 PM EDT [facility] RBC 4.80 4.50 - 5.50 M/mcL LAB HEMETOLOGY METHOD 08/12/2024 11:16 PM EDT [facility] Hemoglobin 14.2 13.5 - 17.5 g/dL LAB HEMETOLOGY METHOD 08/12/2024 11:16 PM EDT [facility] Hematocrit 41.9(L) 42.0 - 54.0 % LAB HEMETOLOGY METHOD 08/12/2024 11:16 PM EDT [facility] MCV 88.2 79.0 - 98.0 FL LAB HEMETOLOGY METHOD 08/12/2024 11:16 PM EDT [facility] MCH 29.9 27.0 - 32.0 pcg LAB HEMETOLOGY METHOD 08/12/2024 11:16 PM EDT [facility] MCHC 33.9 32.0 - 37.0 g/dL LAB HEMETOLOGY METHOD 08/12/2024 11:16 PM [facility] RDW 12.1 11.0 - 15.0 % LAB HEMETOLOGY METHOD 08/12/2024 11:16 PM [facility] Platelets 399 130 - 400 K/mcL LAB HEMETOLOGY METHOD 08/12/2024 11:16 PM [facility] MPV 9.7 7.0 - 11.0 FL LAB HEMETOLOGY METHOD 08/12/2024 11:16 PM [facility] NRBC 0.0 <1.0 % LAB HEMETOLOGY METHOD 08/12/2024 11:16 PM [facility] NRBC Absolute 0.00 <0.10 K/mcL LAB HEMETOLOGY METHOD 08/12/2024 11:16 PM [facility] Neutrophils Relative 63.7 % LAB HEMETOLOGY METHOD 08/12/2024 11:16 PM [facility] Lymphocytes Relative 23.8 % LAB HEMETOLOGY METHOD 08/12/2024 11:16 PM [facility] Monocytes Relative 7.1 % LAB HEMETOLOGY METHOD 08/12/2024 11:16 PM [facility] Eosinophils Relative 2.9 % LAB HEMETOLOGY METHOD 08/12/2024 11:16 PM [facility] Basophils Relative 0.9 % LAB HEMETOLOGY METHOD 08/12/2024 11:16 PM [facility] Immature Granulocytes Relative 1.6 % LAB HEMETOLOGY METHOD 08/12/2024 11:16 PM [facility] Neutrophils Absolute 6.24 1.50 - 7.00 K/mcL LAB HEMETOLOGY METHOD 08/12/2024 11:16 PM [facility] Lymphocytes Absolute 2.33 1.00 - 5.00 K/mcL LAB HEMETOLOGY METHOD 08/12/2024 11:16 PM EDT [facility] Monocytes Absolute 0.70 0.20 - 1.00 K/[facility] LAB HEMETOLOGY METHOD 08/12/2024 11:16 PM EDT [facility] Eosinophils Absolute 0.28 0.00 - 0.50 K/[facility] LAB HEMETOLOGY METHOD 08/12/2024 11:16 PM EDT [facility] Basophils Absolute 0.09 0.00 - 0.20 K/[facility] LAB HEMETOLOGY METHOD 08/12/2024 11:16 PM EDT [facility] Immature Granulocytes Absolute 0.16(H) 0.00 - 0.03 K/[facility] LAB HEMETOLOGY METHOD 08/12/2024 11:16 PM EDT [facility] Blood Venous blood specimen / Unknown Venipuncture / Unknown 08/12/2024 10:25 PM EDT 08/12/2024 11:05 PM EDT us Henrietta NUÑEZ LAB BLOOD ORDERABLES Final Result [facility] [address] [place] [address], * (ABNORMAL) Comprehensive metabolic panel (08/12/2024 10:25 PM EDT) Sodium 138 133 - 145 mmol/L LAB CHEMISTRY METHOD 08/12/2024 11:52 PM EDT [facility] Potassium 3.9 3.5 - 5.5 mmol/L LAB CHEMISTRY METHOD 08/12/2024 11:52 PM EDT [facility] Chloride 104 96 - 110 mmol/L LAB CHEMISTRY METHOD 08/12/2024 11:52 PM EDT [facility] CO2 26 21 - 32 mmol/L LAB CHEMISTRY METHOD 08/12/2024 11:52 PM EDT [facility] Anion Gap 8 3 - 11 LAB CHEMISTRY METHOD 08/12/2024 11:52 PM [facility] Glucose 104(H) 70 - 100 mg/dL LAB CHEMISTRY METHOD 08/12/2024 11:52 PM [facility] BUN 13 5 - 25 mg/dL LAB CHEMISTRY METHOD 08/12/2024 11:52 PM [facility] Creatinine 0.85 0.70 - 1.30 mg/dL LAB CHEMISTRY METHOD 08/12/2024 11:52 PM [facility] eGFR 119 >=60 mL/min/1. 73m2 LAB CHEMISTRY METHOD 08/12/2024 11:52 PM [facility] Comment:Calculation based on the??Chronic Kidney Disease Epidemiology Collaboration (CKD-EPI) equation refit??without adjustment for race. BUN/Creatinine Ratio 15.3 LAB CHEMISTRY METHOD 08/12/2024 11:52 PM [facility] Calcium 9.2 8.5 - 10.5 mg/dL LAB CHEMISTRY METHOD 08/12/2024 11:52 PM [facility] AST (SGOT) 28 10 - 42 unit/L LAB CHEMISTRY METHOD 08/12/2024 11:52 PM [facility] ALT (SGPT) 68(H) 10 - 60 unit/L LAB CHEMISTRY METHOD 08/12/2024 11:52 PM [facility] Alkaline Phosphatase 78 42 - 121 unit/L LAB CHEMISTRY METHOD 08/12/2024 11:52 PM [facility] Total Protein 7.8 6.0 - 8.0 g/dL LAB CHEMISTRY METHOD 08/12/2024 11:52 PM [facility] Albumin 4.4 3.2 - 5.0 g/dL LAB CHEMISTRY METHOD 08/12/2024 11:52 PM [facility] Total Bilirubin 0.3 0.0 - 1.4 mg/dL LAB CHEMISTRY METHOD 08/12/2024 11:52 PM EDT [facility] Blood Venous blood specimen / Unknown Venipuncture / Unknown 08/12/2024 10:25 PM EDT 08/12/2024 11:05 PM EDT [facility] NUÑEZ LAB BLOOD ORDERABLES Final Result [facility] [address] [place] [address], [place] [phone] from Last 3 Months Insurance MEDICAID - [place] Care Teams Habitat Management Coordinator Relationship Specialty Start Date End Date Quinton Casey PA [address] [place] [phone] PCP - General Physician Field Staff Manager 08/12/24
--- OUTSIDE RECORDS SUMMARY | 2024-08-18 16:06 | XMS_ITS | Encounter Summary ---
Author Organization [facility] Address [address] [place] [address] Care Team Providers Care Field Return Repairer Name Role Phone Quinton Casey Primary Care Provider [phone]- [phone] Reason for Visit * Reason Comments Back Pain Encounter Details Date Type Department Care Team (Late st Contact Info) Description 08/12/2024 7:47 PM EDT - 08/13/2024 12:41 AM EDT Emergency [facility] Emergency [address] [place] [address] Lumbar strain, initial encounter (Primary [...] or require a referral, a follow-up doctor contracting manager for the emergency department will be provided [...] arrangements to follow up. Jolanta Bolden Jolanta Orient Jolanta Weathers Jolanta Reynaga documented in this [...] REFLEX MICROSCOPIC AND CULTURE - Abnormal Specific [place] Urine 1.026 pH, Urine 7.5 Leukocytes, Urine [...] Procedure Abnormality Status --------- ------ CBC auto differential[[id number]] Abnormal Final result Please view results for these tests on the individual orders. URINALYSIS WITH REFLEX MICROSCOPIC AND CULTURE Narrative: The following orders were created for panel order Urinalysis with reflex microscopic and culture. Procedure Abnormality Status --------- ------ Urinalysis with reflex m...[[id number]] Abnormal Final result [facility] urine culture tube[[id number]] In process Please view results for these [...] LAB HEMETOLOGY METHOD 08/12/2024 11:16 PM EDT [facility] RBC 4.80 4.50 - 5.50 M/mcL LAB HEMETOLOGY METHOD 08/12/2024 11:16 PM EDT [facility] Hemoglobin 14.2 13.5 - 17.5 g/dL LAB HEMETOLOGY METHOD [facility] Hematocrit 41.9(L) 42.0 - 54.0 % LAB HEMETOLOGY METHOD 08/12/2024 11:16 PM EDT [facility] MCV 88.2 79.0 - 98.0 FL LAB HEMETOLOGY METHOD 08/12/2024 11:16 PM EDT [facility] MCH 29.9 27.0 - 32.0 pcg LAB HEMETOLOGY METHOD 08/12/2024 11:16 PM [facility] MCHC 33.9 32.0 - 37.0 g/dL LAB HEMETOLOGY METHOD 08/[facility] RDW 12.1 11.0 - 15.0 % LAB HEMETOLOGY METHOD 08/12/2024 11:16 PM [facility] Platelets 399 130 - 400 K/mcL LAB HEMETOLOGY METHOD 08/12/2024 11:16 PM [facility] MPV 9.7 7.0 - 11.0 FL LAB HEMETOLOGY METHOD 08/12/2024 11:16 PM [facility] NRBC 0.0 <1.0 % LAB HEMETOLOGY METHOD 08/12/2024 11:16 PM [facility] NRBC Absolute 0.00 <0.10 K/mcL LAB HEMETOLOGY METHOD 08/12/2024 11:16 PM [facility] Neutrophils Relative 63.7 % LAB HEMETOLOGY METHOD 08/12/2024 11:16 PM [facility] Lymphocytes Relative 23.8 % LAB HEMETOLOGY METHOD 08/12/2024 11:16 PM [facility] Monocytes Relative 7.1 % LAB HEMETOLOGY METHOD 08/12/2024 11:16 PM [facility] Eosinophils Relative 2.9 % LAB HEMETOLOGY METHOD 08/12/2024 11:16 PM [facility] Basophils Relative 0.9 % LAB HEMETOLOGY METHOD 08/12/2024 11:16 PM [facility] Immature Granulocytes Relative 1.6 % LAB HEMETOLOGY METHOD 08/12/2024 11:16 PM [facility] Neutrophils Absolute 6.24 1.50 - 7.00 K/mcL LAB HEMETOLOGY METHOD 08/12/2024 11:16 PM [facility] Lymphocytes Absolute 2.33 1.00 - 5.00 K/mcL LAB HEMETOLOGY METHOD 08/12/2024 11:16 PM [facility] Monocytes Absolute 0.70 0.20 - 1.00 K/mcL LAB HEMETOLOGY METHOD 08/12/2024 11:16 PM EDT [facility] Eosinophils Absolute 0.28 0.00 - 0.50 K/[facility] LAB HEMETOLOGY METHOD 08/12/2024 11:16 PM EDT [facility] Basophils Absolute 0.09 0.00 - 0.20 K/[facility] LAB HEMETOLOGY METHOD 08/12/2024 11:16 PM EDT [facility] Immature Granulocytes Absolute 0.16(H) 0.00 - 0.03 K/[facility] LAB HEMETOLOGY METHOD 08/12/2024 11:16 PM EDT [facility] Blood Venous blood specimen / Unknown Venipuncture / Unknown 08/12/2024 10:25 PM EDT 08/12/2024 11:05 PM EDT Henrietta NUÑEZ LAB BLOOD ORDERABLES Final Result [facility] [address] [place] [address], [place] [phone] * [facility] urine culture tube (08/12/2024 10:25 PM EDT) Extra Tube Hold for add-ons. 08/13/2024 1:01 AM EDT [facility] Comment:Auto resulted. Urine Urine specimen obtained by clean catch procedure / Unknown Non-blood Collection / Unknown 08/12/2024 10:25 PM EDT 08/12/2024 11:05 PM EDT Henrietta NUÑEZ LAB URINE ORDERABLES Final Result Performing Organization Address [facility]/ZIP Co de Phone Number [facility] [address] [place] [address], [place] [phone] * (ABNORMAL) Urinalysis with reflex microscopic and culture (08/12/2024 10:25 PM EDT) Pathologist [facility] Specific [place] Urine 1.026 1.003 - 1.030 LAB URINALYSIS - AUTOMATED METHOD 08/12/2024 11:14 PM [facility] pH, Urine 7.5 5.0 - 8.0 pH LAB URINALYSIS - AUTOMATED METHOD 08/12/2024 11:14 PM [facility] Leukocytes, Urine Negative Negative LAB URINALYSIS - AUTOMATED METHOD 08/12/2024 11:14 PM [facility] Nitrite, Urine Negative Negative LAB URINALYSIS - AUTOMATED METHOD 08/12/2024 11:14 PM [facility] Protein, Urine Trace <=Trace mg/dL LAB URINALYSIS - AUTOMATED METHOD 08/12/2024 11:14 PM [facility] Glucose, Urine Negative Negative mg/dL LAB URINALYSIS - AUTOMATED METHOD 08/12/2024 11:14 PM [facility] Ketones, Urine Trace(A) Negative mg/dL LAB URINALYSIS - AUTOMATED METHOD 08/12/2024 11:14 PM [facility] Urobilinogen, Urine 1.0 0.2 - 1.0 mg/dL LAB URINALYSIS - AUTOMATED METHOD 08/12/2024 11:14 PM [facility] Bilirubin, Urine Negative Negative LAB URINALYSIS - AUTOMATED METHOD 08/12/2024 11:14 PM [facility] Blood, Urine Negative Negative LAB URINALYSIS - AUTOMATED METHOD 08/12/2024 11:14 PM [facility] Urine Urine specimen obtained by clean catch procedure / Unknown Non-blood Collection / Unknown 08/12/2024 10:25 PM EDT 08/12/2024 11:05 PM EDT us Henrietta NUÑEZ LAB URINE ORDERABLES Final Result [facility] [address] [place] [address], * (ABNORMAL) Comprehensive metabolic panel (08/12/2024 10:25 PM EDT) Sodium 138 133 - 145 mmol/L LAB CHEMISTRY METHOD 08/12/2024 11:52 PM EDT [facility] Potassium 3.9 3.5 - 5.5 mmol/L LAB CHEMISTRY METHOD 08/12/2024 11:52 PM EDT [facility] Chloride 104 96 - 110 mmol/L LAB CHEMISTRY METHOD 08/12/2024 11:52 PM [facility] CO2 26 21 - 32 mmol/L LAB CHEMISTRY METHOD 08/12/2024 11:52 PM [facility] Anion Gap 8 3 - 11 LAB CHEMISTRY METHOD 08/12/2024 11:52 PM [facility] Glucose 104(H) 70 - 100 mg/dL LAB CHEMISTRY METHOD 08/12/2024 11:52 PM [facility] BUN 13 5 - 25 mg/dL LAB CHEMISTRY METHOD 08/12/2024 11:52 PM [facility] Creatinine 0.85 0.70 - 1.30 mg/dL LAB CHEMISTRY METHOD 08/[facility]24 [facility] eGFR 119 >=60 mL/min/1. 73m2 LAB CHEMISTRY METHOD 08/12/2024 11:52 PM [facility] Comment:Calculation based on the??Chronic Kidney Disease Epidemiology Collaboration (CKD-EPI) equation refit??without adjustment for race. BUN/Creatinine Ratio 15.3 LAB CHEMISTRY METHOD 08/12/2024 11:52 PM [facility] Calcium 9.2 8.5 - 10.5 mg/dL LAB CHEMISTRY METHOD 08/12/2024 11:52 PM [facility] AST (SGOT) 28 10 - 42 unit/L LAB CHEMISTRY METHOD 08/12/2024 11:52 PM EDT [facility] ALT (SGPT) 68(H) 10 - 60 unit/L LAB CHEMISTRY METHOD 08/12/2024 11:52 PM EDT [facility] Alkaline Phosphatase 78 42 - 121 unit/L LAB CHEMISTRY METHOD 08/12/2024 11:52 PM EDT [facility] Total Protein 7.8 6.0 - 8.0 g/dL LAB CHEMISTRY METHOD 08/12/2024 11:52 PM EDT [facility] Albumin 4.4 3.2 - 5.0 g/dL LAB CHEMISTRY METHOD 08/12/2024 11:52 PM EDT [facility] Total Bilirubin 0.3 0.0 - 1.4 mg/dL LAB CHEMISTRY METHOD 08/12/2024 11:52 PM EDT [facility] Blood Venous blood specimen / Unknown Venipuncture / Unknown 08/12/2024 10:25 PM EDT 08/12/2024 11:05 PM EDT Henrietta NUÑEZ LAB BLOOD ORDERABLES Final Result [facility] [address] [place] [address], documented in this encounter Visit Diagnoses Diagnosis [...] RN) documented in this encounter Care Teams Field Return Repairer Relationship Specialty Start Date End Date Quinton Casey PA [address] [place] [address] PCP - General Physician Retail Manager 08/12/24 documented as of this encounter
[2024-08-18 16:29] LABS: Basophils Absolute Auto 0.1 X10*3/uL (0.0-0.2); Basophils Percent Auto 0.9 % (0-2); Eosinophils Absolute Auto 0.2 X10*3/uL (0.0-0.4); Hemoglobin 14.4 g/dl (14.0-18.0); Imm Gran Abs Auto 0.11 X10*3/uL (0.00-0.03); Imm Gran Pct Auto 1.5 % (0.0-0.4); Lymphocytes Absolute Auto 1.9 X10*3/uL (1.2-4.9); Mean Corpuscular HGB Conc 34.3 g/dl (31.0-36.0); Mean Corpuscular Hemoglobin 29.4 pg (27.0-33.0); Mean Corpuscular Volume 85.7 fL (80.0-98.0); Mean Platelet Volume 9.8 fL (9.4-12.4); Monocytes Absolute Auto 0.6 X10*3/uL (0.1-1.2); Monocytes Percent Auto 7.4 % (2-11); Neutrophils Absolute Auto 4.6 x10*3/uL (2.0-8.3); Neutrophils Percent Auto 62.2 % (45-73); Platelet Count 390 X10*3/uL (160-400); Red Cell Distribution Width 12.2 % (11.0-16.0); White Blood Count 7.4 X10*3/uL (4.8-10.8)
[2024-08-18 18:04] LABS: Alanine Aminotransferase 62 U/L (0-40); Alkaline Phosphatase 70 U/L (39-117); Anion Gap 12 (12-20); Aspartate Amino Transferase 33 U/L (5-37); Bilirubin Total 0.6 mg/dL (0.0-1.0); Blood Urea Nitrogen 12 mg/dL (9-16); Calcium 9.3 mg/dL (8.4-10.2); Carbon Dioxide 24 mmol/L (22-29); Chloride 107 mmol/L (96-108); Estimated Glomerular Filt Rate > 60; Glucose Random 98 mg/dL (60-115); Lipase 21 U/L (8-78); Magnesium 2.2 mg/dL (1.6-2.6); Potassium 3.8 mmol/L (3.3-5.1); Sodium 139 mmol/L (135-145); Total Protein 7.9 g/dL (6.5-8.0)
[2024-08-19 04:32] LABS: HBS Num1 0.21 mIU/mL (0-7.99); HBc Num1 0.07 S/CO (0.00-0.79); HBsAGNum1 0.41 S/CO (0.00-0.99); Hepatitis A Antibody IgM 0.15 Index (0-0.79); Hepatitis B Core Antibody Nonreactive (Nonreactive); Hepatitis B Surface Antigen Negative (Negative); ~HepC Num1 0.18 S/CO (0.00-0.79); ~Hepatitis A Antibody IgM Nonreactive (Nonreactive); ~Hepatitis B Surface Antibody NONREACTIVE (Nonreactive); ~Hepatitis C Antibody Nonreactive (Nonreactive)
[2024-08-19 09:28] LABS: Alpha 1 Anti-trypsin 145 mg/dL (83-199); Ceruloplasmin 22 mg/dL (14-30)
[2024-08-21 08:47] LABS: Smooth Muscle Antibody <20 U (<20)
[2024-08-25 14:38] LABS: Soluble Liver Ag Autoantibody <20.1 U (0.0-20.0)
[2024-08-25 14:48] LABS: Hepatitis C Genotype Not Detected
== END 2024-08-18 13:51 | disposition home or self-care (01) ==
LOC: HO.LAB 13:50
PROVIDERS: Absent Provider Internal Medicine Gastroenterology; PCP Physician Assistant; Visit Provider Physician Assistant
DX: Z00.00 Encounter for general adult medical examination without abnormal findings (principal); R19.7 Diarrhea, unspecified; R79.89 Other specified abnormal findings of blood chemistry; K75.81 Nonalcoholic steatohepatitis (NASH); K27.9 Peptic ulcer, site unspecified, unspecified as acute or chronic, without hemorrhage or perforation
CPT/HCPCS: 36415; 80053; 82103; 82390; 82550; 83520; 83690; 83735; 85025; 86015; 86704; 86706; 86709; 86803; 87340; 87902; 96127; 99395

== ENCOUNTER 2024-08-18 13:50 | Outpatient (AMB) | payer OTHER, SELFPAY ==
--- NOTE | 2024-08-18 14:00 | A.OFFPC_ITS ---
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 Required: No Accompanied by: Self / Same As Patient Allergies shellfish derived Allergy (Mild, Verified 08/18/24 14:13) Unknown Medication List - Last Reconciled 08/18/24 by Quinton Casey PA-C ondansetron 8 mg PO Q12H PRN 10 days pantoprazole 40 mg PO DAILY 30 days sodium,potassium,mag sulfates 17.5-3.13-1.6 gram (Suprep Bowel Prep Kit) DILUTE; drink 1/2 at 6-8 pm and half at 11 PM- 1AM sucralfate (Carafate) 10 mL PO QID PRN 15 days Tobacco use date assessed: 05/19/24 Dental Screening Dental Screen Date: 05/19/24 HPI PE HPI Details Patient is a 29-year-old male here today for routine annual physical. Patient has a past medical history significant for peptic ulcer disease and elevated liver enzymes. He reports he has been experiencing increased stool frequency, abdominal bloating, and gastrointestinal pain. He experiences a significant urgency to defecate within 10-15 minutes of consuming food, leading to lifestyle and occupational challenges due to the frequent need for restroom access. Dietary changes towards an organic and gluten-free diet have failed to significantly alleviate symptoms, although they offer minor improvements. His gastrointestinal symptoms are compounded by occasional bloating and a low appetite, yet his weight remains constant at 187 pounds. While GERD medications such as pantoprazole have previously been used, its ineffectiveness led to the use of [id number] omeprazole with some positive effect. Suspicions of an ulcer persist alongside concerns for inflammatory bowel disease. Further complicating his presentation are joint pains, which are notably worse at night. He holds a strong familial history of autoimmune diseases, raising concerns about a possible underlying autoimmune pathology. Planned rheumatological evaluations target both his joint concerns and their potential association with gastrointestinal symptoms, as seen in shared inflammations in conditions like inflammatory bowel diseases. Investigative steps towards comprehensive evaluation of inflammatory bowel disorder include specific blood markers and planned endoscopic procedures Laboratory Tests 11/29/20 05/15/24 16:40 03:17 RBC 5.07 Creatinine 0.79 AST 61 H ALT 115 H NA Titer 1:160 H PFSH Medical History Asthma GERD (gastroesophageal reflux disease) Surgical History Hx of cervical spine surgery Hx of appendectomy History of esophagogastroduodenoscopy (EGD) Family History Maternal Uncle Colon cancer Maternal Grandmother Colon cancer Social History Housing: Apartment Patient Tobacco Use Status: Never used Tobacco e-Cigarette/Vaping Use: Never Used Second Hand Smoke Exposure: No service: No Current occupational status: employed Current occupation: [employer] Cognitive needs: No Hearing needs: No Vision needs: No Questionnaire PHQ-9 Over the last 2 weeks, how often have you been bothered by any of the following problems? 1. Little interest or pleasure in doing things: several days 2. Feeling down, depressed, or hopeless: not at all 3. Trouble falling or staying asleep, or sleeping too much: more than half the days 4. Feeling tired or having little energy: more than half the days 5. Poor appetite or overeating: more than half the days 6. Feeling bad about yourself - or that you are a failure or have let yourself or your family down: not at all 7. Trouble concentrating on things, such as reading the newspaper or watching television: not at all 8. Moving or speaking so slowly that other people could have noticed. Or the opposite - being so fidgety or restless that you have been moving around a lot more than usual: not at all 9. Thoughts that you would be better off or of hurting yourself in some way: not at all Total score: 7 Depression Screening Interpretation: Positive Depression Screening Follow-up: Existing condition Depression Screening Done: Yes 83020 - PHQ-9 Billing: Yes Source: Developed by Drs. Josh Bangura, Isabell B.W. Silver Bailey and colleagues, with an educational anabella from [employer]. Thrive Questionnaire Date Thrive assessed: 08/18/24 I am a: Patient What is your living situation today?: I have a steady place to live Within the past 12 months, did the food you bought not last and you didn't have the money to get more?: Never true Within the past 12 months, did you worry whether your food would run out before you got money to buy more?: Never true Do you have trouble paying for medicines?: No Do you have trouble getting transportation to medical appointments?: No Do you have trouble paying your heating and electricity bill?: No Do you have trouble taking care of your child, family member or friend?: No Do you have trouble with day-to-day activities such as bathing, preparing meals, shopping, managing finances, etc.?: No Are you currently unemployed and looking for a job?: No Are you interested in more education?: No Please select the resources that you would like help with: None Currently or been in a relationship where the following occur: No concerns reported THRIVE Score: 0 AUDIT C Alcohol Use Questionnaire (AUDIT-C) 1. How often do you have a drink containing alcohol?: Never 3. How often do you have six or more drinks on one occasion?: Never Total Score: 0 BLAIR-7 AMB Questionnaire BLAIR-7 Date BLAIR - 7 assessed: 08/18/24 Feeling nervous, anxious, or on edge: 0 = Not at all Not being able to stop or control worryin = Not at all Worrying too much about different things: 0 = Not at all Trouble relaxin = More than half the days Being so restless that it is hard to sit still: 0 = Not at all Becoming easily annoyed or irritable: 0 = Not at all Feeling afraid as if something awful might happen: 0 = Not at all Total BLAIR-7 score (0-4 normal; 5-9 mild; 10-14 moderate; 15-21 severe): 2 Source: Developed by Drs. Josh Bangura, Silver Magallanes and colleagues, with an educational anabella from [employer]. BLAIR-7 Assessment Billing BLAIR-7 Assessment Tool: BLAIR-7 Assessment 18493 Review of Systems Const Denies body aches, Denies chills, Denies excessive sweating, Denies fatigue, Denies fever(s) and Denies headache(s) Eyes Denies blurry vision ENT Denies dysphagia, Denies vertigo, Denies dizziness, Denies headache(s), Denies hearing loss and Denies tinnitus Card Denies chest pain, Denies chest pain with activity, Denies syncope, Denies irregular heart rhythm and Denies dyspnea Resp Denies chest congestion, Denies cough, Denies hemoptysis, Denies dyspnea and Denies wheezing GI Denies abdominal pain, Denies melena, Denies hematochezia, Denies coffee ground emesis, Denies dysphagia, Denies diarrhea, Denies nausea and Denies vomiting Denies difficulty urinating, Denies dysuria, Denies urinary frequency, Denies urinary hesitancy and Denies urinary urgency Musc Denies arthralgias, Denies limited range of motion, Denies muscle cramps and Denies muscle weakness Skin/Breast Denies rash and Denies skin ulcer Neuro Denies Abnormal speech present, Denies confusion, Denies vertigo, Denies dizziness, Denies syncope, Denies headache(s), Denies memory loss and Denies seizure-like activity Psych Denies anxiety, Denies confusion, Denies depression, Denies memory loss, Denies panic attacks and Denies paranoia Endo Denies excessive sweating, Denies fatigue, Denies flushing, Denies polydipsia and Denies polyuria Aller/Immun Denies wheezing Physical exam (Primary Care) Vital Signs: Last Vital Signs Temp 97.3 F 08/18/24 14:04 Pulse 80 08/18/24 14:04 BP 128/84 08/18/24 14:04 Pulse Ox 98 08/18/24 14:04 Oxygen Delivery Method Room Air 08/18/24 14:04 BMI result Body Mass Index 31.2 Tobacco/Smoking Status: Tobacco use Status Tobacco use date assessed 05/19/24 08/18/24 14:00 Patient Tobacco Use Status Never used Tobacco 08/18/24 14:00 e-Cigarette/Vaping Use Never Used 08/18/24 14:00 PHQ-9: PHQ-9 Score PHQ-9: Total score 7 08/18/24 14:04 Depression Screening Interpretation: Positive Depression Screening Follow-up: Existing condition Thrive Assessment: Date of Thrive Assessment Date Thrive assessed 08/18/24 08/18/24 14:01 Currently or been in a relationship where the following occur: No concerns reported Const General: cooperative, comfortable, no acute distress, alert and awake; No confusion Orientation/consciousness: oriented to person, oriented to place, patient oriented x3 and No confusion HENMT Head: Yes normocephalic Ears: external ears normal and TM's normal bilaterally Face and sinus: No sinus tenderness Mouth: Normal oral and palatal mucosa present and tongue normal Teeth and gingiva: dentition normal and gingiva normal Throat: Yes posterior oropharynx normal, Yes tonsils normal and Yes uvula midline Eyes Conjunctivae: conjunctivae normal Sclerae: sclerae normal Pupils: Equal, round and reactive pupils present EOM: EOMs intact bilaterally Direct Ophthalmoscopy: No no photophobia Neck Neck: Yes no lymphadenopathy, No tender and Yes no JVD Thyroid: Thyroid normal Carotids: no bruits Chest Chest palpation & inspection: no tenderness Resp Effort & Inspection: normal respiratory effort, no audible wheezes, not labored and no stridor Auscultation: no crackles, no rales, no rhonchi and no wheezes Cardio Jugular venous distension: no JVD Rate: regular rate, not bradycardic and not tachycardic Rhythm: regular rhythm Bruits: no carotid bruits Peripheral pulses: Peripheral pulses 2+ throughout GI Inspection: Yes normal to inspection, No abdominal wall ecchymosis and No visible herniation Palpation (GI): Soft to palpation, nontender, no guarding, not rigid and No hepatosplenomegaly present Auscultation: normoactive bowel sounds General: Yes no CVA tenderness Back/Spine/Pelvis Back: no CVA tenderness and No back tenderness Cervical Spine: cervical ROM normal Thoracic/Lumbar Spine: thoracic and lumbar spine normal to inspection, straight leg raise negative bilaterally, No thoraco-lumbar ROM limited and No lumbar spinal tenderness Skin Lesions: no lesions Rashes: no rashes Wounds: no wounds Neuro General: oriented to person, oriented to place, patient oriented x3, CN's II-XI intact bilaterally and No confusion Cranial nerves: Yes Equal, round and reactive pupils present and Yes Normal accommodation reflex present Cognition (Neuro): normal cognition Speech: No Abnormal speech present Gait exam (Neuro): Normal gait present Motor exam (neuro): 5/5 motor strength present throughout Extrem Right upper extremity: full ROM; no cyanosis Left upper extremity: full ROM; no cyanosis Right lower extremity: no edema Left lower extremity: no edema Psych Appearance: grossly normal Mental Status: mental status grossly normal Affect: normal affect Attitude: cooperative Thought process: Normal thought process present Coding Level of Care Code Est Pt Prev Care [id number]([id number]) Diagnoses Annual physical exam Z00.00 Diarrhea, unspecified type R19.7 Diarrhea type: unspecified type Abnormal LFTs R79.89 Additional Codes BLAIR-7 Assessment Billing - BLAIR-7 Assessment Tool: BLAIR-7 Assessment 37717 ([id number]) PHQ-9 - 70251 - PHQ-9 Billing: Yes ([id number]) Assessment & Plan Assessment & Plan (1) Annual physical exam: Code(s): Z00.00 - Encounter for general adult medical examination without abnormal findings Category: Medical Plan: As per HPI (2) Frequent loose stools: Code(s): R19.7 - Diarrhea, unspecified Category: Medical Qualifiers: Diarrhea type: unspecified type Qualified Code(s): R19.7 - Diarrhea, unspecified Plan: Further diagnostics aim to evaluate suspected inflammatory bowel disease with scheduled endoscopic procedures and specific laboratory markers. We will implement a prednisone taper to manage symptoms and inflammation as we progress through diagnostic evaluations. (3) Abnormal LFTs: Code(s): R79.89 - Other specified abnormal findings of blood chemistry Category: Medical Plan: Liver enzymes were elevated on most recent labs.. Patient is due for an ultrasound his abdomen evaluate his liver. Medications: New prednisone Take 3 tablets x4 days, 2 tablets x4 days, 1 tablet x4 days 10 mg PO DIRECTED 12 days 24 tabs 0RF R19.7 - Diarrhea, unspecified
[2024-08-18 14:04] VITALS: BP 128/84; PULSE 80; TEMP 36.3; O2SAT 98; BMI 31.2
--- OUTSIDE RECORDS SUMMARY | 2024-08-18 15:11 | XMS_ITS | Encounter Summary ---
Author Organization [facility] Address [address] [place] [address] Care Team Providers Care Padded Products Finisher Name Role Phone Quinton Casey Primary Care Provider [phone]- [phone] Reason for Visit * Reason Comments Back Pain Encounter Details Date Type Department Care Team (Late st Contact Info) Description 08/12/2024 7:47 PM EDT - 08/13/2024 12:[address] [facility] Emergency [address] [place] [address] Lumbar strain, initial encounter (Primary [...] or require a referral, a follow-up doctor plastics fabrication supervisor for the emergency department will be provided [...] arrangements to follow up. Jolanta Bolden Jolanta [place] Jolanta Weathers Jolanta Reynaga documented in this [...] as well. Denies bowel or bladder incontinence * SAVANNAH Parham - 08/12/2024 6:11 PM EDT Emergency Medicine Note Patient Name: Enrique Barlow Initial Evaluation: 08/12/2024 : 1995 Patient's PCP: SAVANNAH Clement Emergency Physician: SAVANNAH Parham History of Present Illness Chief Complaint: Chief Complaint Patient presents with Back Pain HPI: 29-year-old male patient presents the ER today reporting back pain. Patient reports that few weeks ago he developed mid back pain as well as some low pelvic pain and went to his PCP. His PCP didlab work and he said my kidney levels were low and he was supposed to get a kidney ultrasound butinsurance was unable to cover it. He reports that today he went to bend over to grab something in the shower and felt pain in his mid back bilaterally. Patient denies saddle paresthesias, weakness inthe lower extremities, and loss of bowel or bladder function. No IV drug use. Reports subjective fevers chills. No nausea or vomiting. Denies any concerns for STIs, denies penile discharge, denies UTI-like symptoms. ROS: I have performed a ROS with the pertinent positives and negatives documented in the history ofpresent illness. Previous History No past medical history on file. No past surgical history on file. No family history on file. has No Known Allergies. No current facility-administered medications on file prior to encounter. No current outpatient medications on file prior to encounter. Physical Exam Physical Exam Constitutional: General: He is not in acute distress. Appearance: Normal appearance. He is not ill-appearing, toxic-appearing or diaphoretic. HENT: Head: Normocephalic and atraumatic. Eyes: Extraocular Movements: Extraocular movements intact. Pupils: Pupils are equal, round, and reactive to light. Cardiovascular: Rate and Rhythm: Normal rate and regular rhythm. Pulmonary: Effort: Pulmonary effort is normal. Abdominal: General: Abdomen is flat. Palpations: Abdomen is soft. Tenderness: There is no abdominal tenderness. There is no right CVA tenderness, left CVA tendernessor guarding. Skin: General: Skin is warm. Neurological: General: No focal deficit present. Mental Status: He is alert and oriented to person, place, and time. Mental status is at baseline. Psychiatric: Mood and Affect: Mood normal. Behavior: Behavior normal. Thought Content: Thought content normal. Judgment: Judgment normal. ED Triage Vitals [08/12/24 1841] Temp Heart Rate Resp BP 37 ??C (98.6 ??F) 94 20 138/88 SpO2 Temp Source Heart Rate Source Patient Position 99 % Oral -- -- BP Location FiO2 (%) -- -- Results Labs Reviewed COMPREHENSIVE METABOLIC PANEL - Abnormal Result Value Sodium 138 Potassium 3.9 Chloride 104 CO2 26 Anion Gap 8 Glucose 104 (*) BUN 13 Creatinine 0.85 eGFR 119 BUN/Creatinine Ratio 15.3 Calcium 9.2 AST (SGOT) 28 ALT (SGPT) 68 (*) Alkaline Phosphatase 78 Total Protein 7.8 Albumin 4.4 Total Bilirubin 0.3 URINALYSIS WITH REFLEX MICROSCOPIC AND CULTURE - Abnormal Specific [place] Urine 1.026 pH, Urine 7.5 Leukocytes, Urine Negative Nitrite, Urine Negative Protein, Urine Trace Glucose, Urine Negative Ketones, Urine Trace (*) Urobilinogen, Urine 1.0 Bilirubin, Urine Negative Blood, Urine Negative CBC WITH AUTO DIFFERENTIAL - Abnormal WBC 9.8 RBC 4.80 Hemoglobin 14.2 Hematocrit 41.9 (*) MCV 88.2 MCH 29.9 MCHC 33.9 RDW 12.1 Platelets 399 MPV 9.7 NRBC 0.0 NRBC Absolute 0.00 Neutrophils Relative 63.7 Lymphocytes Relative 23.8 Monocytes Relative 7.1 Eosinophils Relative 2.9 Basophils Relative 0.9 Immature Granulocytes Relative 1.6 Neutrophils Absolute 6.24 Lymphocytes Absolute 2.33 Monocytes Absolute 0.70 Eosinophils Absolute 0.28 Basophils Absolute 0.09 Immature Granulocytes Absolute 0.16 (*) CBC AND DIFFERENTIAL Narrative: The following orders were created for panel order CBC and differential. Procedure Abnormality Status --------- ------ CBC auto differential[[id number]] Abnormal Final result Please view results for these tests on the individual orders. URINALYSIS WITH REFLEX MICROSCOPIC AND CULTURE Narrative: The following orders were created for panel order Urinalysis with reflex microscopic and culture. Procedure Abnormality Status --------- ------ Urinalysis with reflex m...[[id number]] Abnormal Final result [facility] urine culture tube[[id number]] In process Please view results for these tests on the individual orders. Abnormal Labs Reviewed COMPREHENSIVE METABOLIC PANEL - Abnormal; Notable for the following components: Result Value Glucose 104 (*) ALT (SGPT) 68 (*) All other components within normal limits URINALYSIS WITH REFLEX MICROSCOPIC AND CULTURE - Abnormal; Notable for the following components: Ketones, Urine Trace (*) All other components within normal limits CBC WITH AUTO DIFFERENTIAL - Abnormal; Notable for the following components: Hematocrit 41.9 (*) Immature Granulocytes Absolute 0.16 (*) All other components within normal limits US Retroperitoneal Complete Final Result Impression: No significant abnormalities. This document has been electronically signed by: Kirk Ordonez MD on 08/12/2024 23:33:25 I have discussed the incidental/abnormal imaging and/or lab abnormalities with the patient and haveinstructed them the need for further evaluation and workup with their primary care doctor. I have provided the patient with a paper copy of the abnormality. The laboratory results, imaging results and other diagnostic exam results were reviewed in the EMR. EKG Interpretation Critical Care Time None ? Medical Decision Making Medications ketorolac (TORADOL) injection 15 mg (15 mg intravenous Given 08/12/246) ondansetron (PF) (ZOFRAN) injection 4 mg (4 mg intravenous Given 08/12/242304) sodium chloride 0.9 % bolus 1,000 mL (1,000 mL intravenous New Bag 08/12/244) Medical Decision Making Differential diagnosis: Muscle strain Muscle spasm Nephrolithiasis Pyelonephritis Polycystic kidneys UTI STI In short 29-year-old male presenting with mid back pain after bending forward today in the setting of some recent mid back pain with concerns for kidney issues. On arrival vitals are stable patient afebrile. Patient sitting comfortably in chair, nontoxic and in no acute distress, hemodynamically stable. Abdomen is nontender which is reassuring. Will get urinalysis and basic lab work, will treat with Toradol and get ultrasound of the kidneys to rule out anatomical issue. ED Course as of 08/13/2410Aug 12, 20245 IMPRESSION: Impression: No significant abnormalities. [ES] 2334 No evidence of leukocytosis or anemia. Urinalysis shows no evidence of UTI. Evidence of trace proteinuria and trace ketones. Waiting on CMP for kidney function. [ES] Uzma August 13, 2024 0008 CMP shows no evidence of JESÚS. Creatinine 0.84. Based on negative workup believe this is likelymuscular in nature. Patient is also reporting improvement with the Toradol. Will recommend continued NSAIDs and muscle relaxer for discharge home with follow-up to PCP. Strict return precautions and agrees with plan. [ES] ED Course User Index [ES] SAVANNAH Parham Clinical Impressions as of 08/13/2410 Lumbar strain, initial encounter Procedures Procedures Diagnosis 1. Lumbar strain, initial encounter Disposition Discharge ED Prescriptions Medication Sig Dispense Start Date End Date Auth. Provider methocarbamoL (ROBAXIN) 750 mg tablet Take 1 tablet (750 mg total) by mouth 4 (four) times a day for 10 days. 20 each 08/13/2024 08/23/2024 SAVANNAH Parham Physician Attestation SAVANNAH Parham 08/12/24 2207 SAVANNAH Parham 08/13/24 0011 Cosigned by Javon Lubin DO at 08/13/2024 6:25 PM EDT documented in this encounter Plan of Treatment [...] LAB HEMETOLOGY METHOD 08/12/2024 11:16 PM EDT [facility] RBC 4.80 4.50 - 5.50 M/mcL LAB HEMETOLOGY METHOD 08/12/2024 11:16 PM EDT [facility] Hemoglobin 14.2 13.5 - 17.5 g/dL [facility]OLOGY [facility] Hematocrit 41.9(L) 42.0 - 54.0 % LAB HEMETOLOGY METHOD 08/12/2024 11:16 PM EDT [facility] MCV 88.2 79.0 - 98.0 FL LAB HEMETOLOGY METHOD 08/12/2024 11:16 PM EDT [facility] MCH 29.9 27.0 - 32.0 pcg LAB HEMETOLOGY METHOD 08/12/2024 11:16 PM [facility] MCHC 33.9 32.0 - 37.0 g/dL LAB HEMETOLOGY METHOD 08/12[facility]2024 11:[facility] RDW 12.1 11.0 - 15.0 % LAB HEMETOLOGY METHOD 08/12/2024 11:16 PM [facility] Platelets 399 130 - 400 K/mcL LAB HEMETOLOGY METHOD 08/12/2024 11:16 PM [facility] MPV 9.7 7.0 - 11.0 FL LAB HEMETOLOGY METHOD 08/12/2024 11:16 PM [facility] NRBC 0.0 <1.0 % LAB HEMETOLOGY METHOD 08/12/2024 11:16 PM [facility] NRBC Absolute 0.00 <0.10 K/mcL LAB HEMETOLOGY METHOD 08/12/2024 11:16 PM [facility] Neutrophils Relative 63.7 % LAB HEMETOLOGY METHOD 08/12/2024 11:16 PM [facility] Lymphocytes Relative 23.8 % LAB HEMETOLOGY METHOD 08/12/2024 11:16 PM [facility] Monocytes Relative 7.1 % LAB HEMETOLOGY METHOD 08/12/2024 11:16 PM [facility] Eosinophils Relative 2.9 % LAB HEMETOLOGY METHOD 08/12/2024 11:16 PM [facility] Basophils Relative 0.9 % LAB HEMETOLOGY METHOD 08/12/2024 11:16 PM [facility] Immature Granulocytes Relative 1.6 % LAB HEMETOLOGY METHOD 08/12/2024 11:16 PM [facility] Neutrophils Absolute 6.24 1.50 - 7.00 K/mcL LAB HEMETOLOGY METHOD 08/12/2024 11:16 PM [facility] Lymphocytes Absolute 2.33 1.00 - 5.00 K/mcL LAB HEMETOLOGY METHOD 08/12/2024 11:16 PM [facility] Monocytes Absolute 0.70 0.20 - 1.00 K/mcL LAB HEMETOLOGY METHOD 08/12/2024 11:16 PM EDT [facility] Eosinophils Absolute 0.28 0.00 - 0.50 K/[facility] LAB HEMETOLOGY METHOD 08/12/2024 11:16 PM EDT [facility] Basophils Absolute 0.09 0.00 - 0.20 K/[facility] LAB HEMETOLOGY METHOD 08/12/2024 11:16 PM EDT [facility] Immature Granulocytes Absolute 0.16(H) 0.00 - 0.03 K/[facility] LAB HEMETOLOGY METHOD 08/12/2024 11:16 PM EDT [facility] Blood Venous blood specimen / Unknown Venipuncture / Unknown 08/12/2024 10:25 PM EDT 08/12/2024 11:05 PM EDT Henrietta NUÑEZ LAB BLOOD ORDERABLES Final Result [facility] [address] [place] [address], [place] [phone] * [facility] urine culture tube (08/12/2024 10:25 PM EDT) Extra Tube Hold for add-ons. 08/13/2024 1:01 AM EDT [facility] Comment:Auto resulted. Urine Urine specimen obtained by clean catch procedure / Unknown Non-blood Collection / Unknown 08/12/2024 10:25 PM EDT 08/12/2024 11:05 PM EDT Henrietta NÑUEZ LAB URINE ORDERABLES Final Result Performing Organization Address [facility]/ZIP Co de Phone Number [facility] [address] [place] [address], [place] [phone] * (ABNORMAL) Urinalysis with reflex microscopic and culture (08/12/2024 10:25 PM EDT) Pathologist [facility] Specific [place] Urine 1.026 1.003 - 1.030 LAB URINALYSIS - AUTOMATED METHOD 08/12/2024 11:14 PM [facility] pH, Urine 7.5 5.0 - 8.0 pH LAB URINALYSIS - AUTOMATED METHOD 08/12/2024 11:14 PM [facility] Leukocytes, Urine Negative Negative LAB URINALYSIS - AUTOMATED METHOD 08/12/2024 11:14 PM [facility] Nitrite, Urine Negative Negative LAB URINALYSIS - AUTOMATED METHOD 08/12/2024 11:14 PM [facility] Protein, Urine Trace <=Trace mg/dL LAB URINALYSIS - AUTOMATED METHOD 08/12/2024 11:14 PM [facility] Glucose, Urine Negative Negative mg/dL LAB URINALYSIS - AUTOMATED METHOD 08/12/2024 11:14 PM [facility] Ketones, Urine Trace(A) Negative mg/dL LAB URINALYSIS - AUTOMATED METHOD 08/12/2024 11:14 PM [facility] Urobilinogen, Urine 1.0 0.2 - 1.0 mg/dL LAB URINALYSIS - AUTOMATED METHOD 08/12/2024 11:14 PM [facility] Bilirubin, Urine Negative Negative LAB URINALYSIS - AUTOMATED METHOD 08/12/2024 11:14 PM [facility] Blood, Urine Negative Negative LAB URINALYSIS - AUTOMATED METHOD 08/12/2024 11:14 PM [facility] Urine Urine specimen obtained by clean catch procedure / Unknown Non-blood Collection / Unknown 08/12/2024 10:25 PM EDT 08/12/2024 11:05 PM EDT us Henrietta NUÑEZ LAB URINE ORDERABLES Final Result [facility] [address] [place] [address], * (ABNORMAL) Comprehensive metabolic panel (08/12/2024 10:25 PM EDT) Sodium 138 133 - 145 mmol/L LAB CHEMISTRY METHOD 08/12/2024 11:52 PM EDT [facility] Potassium 3.9 3.5 - 5.5 mmol/L LAB CHEMISTRY METHOD 08/12/2024 11:52 PM EDT [facility] Chloride 104 96 - 110 mmol/L LAB CHEMISTRY METHOD 08/12/2024 11:52 PM [facility] CO2 26 21 - 32 mmol/L LAB CHEMISTRY METHOD 08/12/2024 11:52 PM [facility] Anion Gap 8 3 - 11 LAB CHEMISTRY METHOD 08/12/2024 11:52 PM [facility] Glucose 104(H) 70 - 100 mg/dL LAB CHEMISTRY METHOD 08/12/2024 11:52 PM [facility] BUN 13 5 - 25 mg/dL LAB CHEMISTRY METHOD 08/12/2024 11:52 PM [facility] Creatinine 0.85 0.70 - 1.30 mg/dL LAB CHEMISTRY METHOD 08/12/2024 11:[facility] eGFR 119 >=60 mL/min/1. 73m2 LAB CHEMISTRY METHOD 08/12/2024 11:52 PM [facility] Comment:Calculation based on the??Chronic Kidney Disease Epidemiology Collaboration (CKD-EPI) equation refit??without adjustment for race. BUN/Creatinine Ratio 15.3 LAB CHEMISTRY METHOD 08/12/2024 11:52 PM [facility] Calcium 9.2 8.5 - 10.5 mg/dL LAB CHEMISTRY METHOD 08/12/2024 11:52 PM [facility] AST (SGOT) 28 10 - 42 unit/L LAB CHEMISTRY METHOD 08/12/2024 11:52 PM EDT [facility] ALT (SGPT) 68(H) 10 - 60 unit/L LAB CHEMISTRY METHOD 08/12/2024 11:52 PM EDT [facility] Alkaline Phosphatase 78 42 - 121 unit/L LAB CHEMISTRY METHOD 08/12/2024 11:52 PM EDT [facility] Total Protein 7.8 6.0 - 8.0 g/dL LAB CHEMISTRY METHOD 08/12/2024 11:52 PM EDT [facility] Albumin 4.4 3.2 - 5.0 g/dL LAB CHEMISTRY METHOD 08/12/2024 11:52 PM EDT [facility] Total Bilirubin 0.3 0.0 - 1.4 mg/dL LAB CHEMISTRY METHOD 08/12/2024 11:52 PM EDT [facility] Blood Venous blood specimen / Unknown Venipuncture / Unknown 08/12/2024 10:25 PM EDT 08/12/2024 11:05 PM EDT [facility]etta NUÑEZ LAB BLOOD ORDERABLES Final Result [facility] [address] [place] [address], documented in this encounter Visit Diagnoses Diagnosis [...] On Sat08/12/24 at 2202, For 1 dose 2305 (Given - Provider: Lorie Rodriguez RN) sodium chloride 0.9 % bolus 1,000 mL (COMPLETED) 1,000 mL, intravenous, at 2,000 mL/hr, Administer over 30 Minutes, Once, On Sat08/12/24 at 2202, For 1 dose 2304 (New Bag - Provider: Lorie Rodriguez RN) 0040 (Stopped - Provider: Lorie Rodriguez RN) documented in this encounter Care Teams Padded Products Finisher Relationship Specialty Start Date End Date Quinton Casey PA [address] [place] [address] PCP - General Physician Industrial Truck Driver 08/12/24 documented as of this encounter
== END 2024-08-18 14:40 | disposition home or self-care (01) ==
LOC: HO.HMCH 13:51
PROVIDERS: PCP Physician Assistant; Visit Provider Physician Assistant
DX: Z00.00 Encounter for general adult medical examination without abnormal findings (principal); R19.7 Diarrhea, unspecified; R79.89 Other specified abnormal findings of blood chemistry

== ENCOUNTER 2024-08-21 12:16 | Outpatient (REF) | payer OTHER, SELFPAY ==
--- OUTSIDE RECORDS SUMMARY | 2024-08-21 12:31 | XMS_ITS | Clinical Summary ---
Author Organization [facility] Address [address] [place] [address] Phone Care Team Providers Care Mercerizer Machine Operator Name Role Phone Quinton Casey Primary Care Provider [phone]- [phone] Allergies No known active allergies Medications methocarbamoL (ROBAXIN) 750 mg tablet Take 1 tablet (750 mg total) by mouth 4 (four) times a day for 10 days. 20 each 08/13/2024 Active Encounters Date Type Department Care Team Description 08/12/2024 7:47 PM EDT - 08/13/2024 12:41 AM EDT Emergency [facility] Emergency [address] [place] [address] Lumbar strain, initial encounter (Primary [...] and culture (08/12/2024 10:25 PM EDT) Specific [place] Urine 1.026 1.003 - 1.030 LAB URINALYSIS - AUTOMATED METHOD 08/12/2024 11:14 PM [facility] pH, Urine 7.5 5.0 - 8.0 pH LAB URINALYSIS - AUTOMATED METHOD 08/12/2024 11:14 PM [facility] Leukocytes, Urine Negative Negative LAB URINALYSIS - AUTOMATED METHOD 08/12/2024 11:14 PM [facility] Nitrite, Urine Negative Negative LAB URINALYSIS - AUTOMATED METHOD 08/12/2024 11:14 PM [facility] Protein, Urine Trace <=Trace mg/dL LAB URINALYSIS - AUTOMATED METHOD 08/12/2024 11:14 PM [facility] Glucose, Urine Negative Negative mg/dL LAB URINALYSIS - AUTOMATED METHOD 08/12/2024 11:14 PM [facility] Ketones, Urine Trace(A) Negative mg/dL LAB URINALYSIS - AUTOMATED METHOD 08/12/2024 11:14 PM [facility] Urobilinogen, Urine 1.0 0.2 - 1.0 mg/dL LAB URINALYSIS - AUTOMATED METHOD 08/12/2024 11:14 PM [facility] Bilirubin, Urine Negative Negative LAB URINALYSIS - AUTOMATED METHOD 08/12/2024 11:14 PM [facility] Blood, Urine Negative Negative LAB URINALYSIS - AUTOMATED METHOD 08/12/2024 11:14 PM [facility] Urine Urine specimen obtained by clean catch procedure / Unknown Non-blood Collection / Unknown 08/12/2024 10:25 PM EDT 08/12/2024 11:05 PM EDT us Henrietta NUÑEZ LAB URINE ORDERABLES Final Result [facility] [address] [place] [address], [place] [phone] * [facility] urine culture tube (08/12/2024 10:25 PM EDT) [facility] Extra Tube Hold for add-ons. 08/13/2024 1:01 AM EDT [facility] Comment:Auto resulted. Urine Urine specimen obtained by clean catch procedure / Unknown Non-blood Collection / Unknown 08/12/2024 10:25 PM EDT 08/12/2024 11:05 PM EDT us Henrietta NUÑEZ LAB URINE ORDERABLES Final Result [facility] [address] [place] [address], [place] [phone] * (ABNORMAL) CBC auto differential (08/12/2024 10:25 PM EDT) [facility] WBC 9.8 4.8 - 10.8 K/mcL LAB HEMETOLOGY METHOD 08/12/2024 11:16 PM EDT [facility] RBC 4.80 4.50 - 5.50 M/mcL LAB HEMETOLOGY METHOD 08/12/2024 11:16 PM EDT [facility] Hemoglobin 14.2 13.5 - 17.5 g/dL LAB HEMETOLOGY METHOD 08/12/2024 11:16 PM EDT [facility] Hematocrit 41.9(L) 42.0 - 54.0 % LAB HEMETOLOGY METHOD 08/12/2024 11:16 PM EDT [facility] MCV 88.2 79.0 - 98.0 FL LAB HEMETOLOGY METHOD 08/12/2024 11:16 PM EDT [facility] MCH 29.9 27.0 - 32.0 pcg LAB HEMETOLOGY METHOD 08/12/2024 11:16 PM EDT [facility] MCHC 33.9 32.0 - 37.0 g/dL LAB HEMETOLOGY METHOD 08/12/2024 11:16 PM [facility] RDW 12.1 11.0 - 15.0 % LAB HEMETOLOGY METHOD 08/12/2024 11:16 PM [facility] Platelets 399 130 - 400 K/mcL LAB HEMETOLOGY METHOD 08/12/2024 11:16 PM [facility] MPV 9.7 7.0 - 11.0 FL LAB HEMETOLOGY METHOD 08/12/2024 11:16 PM [facility] NRBC 0.0 <1.0 % LAB HEMETOLOGY METHOD 08/12/2024 11:16 PM [facility] NRBC Absolute 0.00 <0.10 K/mcL LAB HEMETOLOGY METHOD 08/12/2024 11:16 PM [facility] Neutrophils Relative 63.7 % LAB HEMETOLOGY METHOD 08/12/2024 11:16 PM [facility] Lymphocytes Relative 23.8 % LAB HEMETOLOGY METHOD 08/12/2024 11:16 PM [facility] Monocytes Relative 7.1 % LAB HEMETOLOGY METHOD 08/12/2024 11:16 PM [facility] Eosinophils Relative 2.9 % LAB HEMETOLOGY METHOD 08/12/2024 11:16 PM [facility] Basophils Relative 0.9 % LAB HEMETOLOGY METHOD 08/12/2024 11:16 PM [facility] Immature Granulocytes Relative 1.6 % LAB HEMETOLOGY METHOD 08/12/2024 11:16 PM [facility] Neutrophils Absolute 6.24 1.50 - 7.00 K/mcL LAB HEMETOLOGY METHOD 08/12/2024 11:16 PM [facility] Lymphocytes Absolute 2.33 1.00 - 5.00 K/mcL LAB HEMETOLOGY METHOD 08/12/2024 11:16 PM EDT [facility] Monocytes Absolute 0.70 0.20 - 1.00 K/[facility] LAB HEMETOLOGY METHOD 08/12/2024 11:16 PM EDT [facility] Eosinophils Absolute 0.28 0.00 - 0.50 K/[facility] LAB HEMETOLOGY METHOD 08/12/2024 11:16 PM EDT [facility] Basophils Absolute 0.09 0.00 - 0.20 K/[facility] LAB HEMETOLOGY METHOD 08/12/2024 11:16 PM EDT [facility] Immature Granulocytes Absolute 0.16(H) 0.00 - 0.03 K/[facility] LAB HEMETOLOGY METHOD 08/12/2024 11:16 PM EDT [facility] Blood Venous blood specimen / Unknown Venipuncture / Unknown 08/12/2024 10:25 PM EDT 08/12/2024 11:05 PM EDT us Henrietta NUÑEZ LAB BLOOD ORDERABLES Final Result [facility] [address] [place] [address], * (ABNORMAL) Comprehensive metabolic panel (08/12/2024 10:25 PM EDT) Sodium 138 133 - 145 mmol/L LAB CHEMISTRY METHOD 08/12/2024 11:52 PM EDT [facility] Potassium 3.9 3.5 - 5.5 mmol/L LAB CHEMISTRY METHOD 08/12/2024 11:52 PM EDT [facility] Chloride 104 96 - 110 mmol/L LAB CHEMISTRY METHOD 08/12/2024 11:52 PM EDT [facility] CO2 26 21 - 32 mmol/L LAB CHEMISTRY METHOD 08/12/2024 11:52 PM EDT [facility] Anion Gap 8 3 - 11 LAB CHEMISTRY METHOD 08/12/2024 11:52 PM [facility] Glucose 104(H) 70 - 100 mg/dL LAB CHEMISTRY METHOD 08/12/2024 11:52 PM [facility] BUN 13 5 - 25 mg/dL LAB CHEMISTRY METHOD 08/12/2024 11:52 PM [facility] Creatinine 0.85 0.70 - 1.30 mg/dL LAB CHEMISTRY METHOD 08/12/2024 11:52 PM [facility] eGFR 119 >=60 mL/min/1. 73m2 LAB CHEMISTRY METHOD 08/12/2024 11:52 PM [facility] Comment:Calculation based on the??Chronic Kidney Disease Epidemiology Collaboration (CKD-EPI) equation refit??without adjustment for race. BUN/Creatinine Ratio 15.3 LAB CHEMISTRY METHOD 08/12/2024 11:52 PM [facility] Calcium 9.2 8.5 - 10.5 mg/dL LAB CHEMISTRY METHOD 08/12/2024 11:52 PM [facility] AST (SGOT) 28 10 - 42 unit/L LAB CHEMISTRY METHOD 08/12/2024 11:52 PM [facility] ALT (SGPT) 68(H) 10 - 60 unit/L LAB CHEMISTRY METHOD 08/12/2024 11:52 PM [facility] Alkaline Phosphatase 78 42 - 121 unit/L LAB CHEMISTRY METHOD 08/12/2024 11:52 PM [facility] Total Protein 7.8 6.0 - 8.0 g/dL LAB CHEMISTRY METHOD 08/12/2024 11:52 PM [facility] Albumin 4.4 3.2 - 5.0 g/dL LAB CHEMISTRY METHOD 08/12/2024 11:52 PM [facility] Total Bilirubin 0.3 0.0 - 1.4 mg/dL LAB CHEMISTRY METHOD 08/12/2024 11:52 PM EDT [facility] ([facility]) [facility] Blood Venous blood specimen / Unknown Venipuncture / Unknown 08/12/2024 10:25 PM EDT 08/12/2024 11:05 PM EDT Henrietta NUÑEZ LAB BLOOD ORDERABLES Final Result [facility] ([facility]) [facility] [address] [place] [address], [place] [phone] from Last 3 Months Insurance MEDICAID - [place] Care Teams Mercerizer Machine Operator Relationship Specialty Start Date End Date Quinton Casey PA [address] [place] [id number] PCP - General Physician Console Manager 08/12/24
== END 2024-08-21 12:17 | disposition home or self-care (01) ==
LOC: HO.LNP 12:16
PROVIDERS: Visit Provider Physician Assistant
DX: K27.9 Peptic ulcer, site unspecified, unspecified as acute or chronic, without hemorrhage or perforation (principal)
CPT/HCPCS: 87338

== ENCOUNTER 2024-09-17 08:30 | Day surgery (SDC) | payer OTHER, SELFPAY ==
--- OUTSIDE RECORDS SUMMARY | 2024-09-01 15:05 | XMS_ITS | Clinical Summary ---
Author Organization [facility] Address [address] [place] [address] Phone Care Team Providers Care Mica Sizer Name Role Phone Quinton Casey Primary Care Provider +1- [phone] Allergies No known active allergies Medications methocarbamoL (ROBAXIN) 750 mg tablet Take 1 tablet (750 mg total) by mouth 4 (four) times a day for 10 days. 20 each 08/13/2024 Active Encounters Date Type Department Care Team Description 08/12/2024 7:47 PM EDT - 08/13/2024 12:41 AM EDT Emergency [facility] Emergency [address] [place] [address] Lumbar strain, initial encounter (Primary [...] and culture (08/12/2024 10:25 PM EDT) Specific [place] Urine 1.026 1.003 - 1.030 LAB URINALYSIS [...] Henrietta NUÑEZ LAB URINE ORDERABLES Final Result [facility] [address] [place] [address], [place] [phone] * [facility] urine culture tube (08/12/2024 10:25 PM EDT) Pathologist [facility] Extra Tube Hold for add-ons. 08/13/2024 1:01 AM EDT [facility] Comment:Auto resulted. Urine Urine specimen obtained by clean catch procedure / Unknown Non-blood Collection / Unknown 08/12/2024 10:25 PM EDT 08/12/2024 11:05 PM EDT us Henrietta NUÑEZ LAB URINE ORDERABLES Final Result [facility] [address] [place] [address], [place] [phone] * (ABNORMAL) CBC auto differential (08/12/2024 10:25 PM EDT) [facility] WBC 9.8 4.8 - 10.8 K/mcL LAB HEMETOLOGY METHOD 08/12/2024 11:16 PM EDT [facility] RBC 4.80 4.50 - 5.50 M/mcL LAB HEMETOLOGY METHOD 08/12/2024 11:16 PM EDT [facility] Hemoglobin 14.2 13.5 - 17.5 g/dL LAB HEMETOLOGY METHOD 08/12/2024 11:16 PM EDT [facility] Hematocrit 41.9(L) 42.0 - 54.0 % LAB HEMETOLOGY METHOD 08/12/2024 11:16 PM EDT [facility] MCV 88.2 79.0 - 98.0 FL LAB HEMETOLOGY METHOD 08/12/2024 11:16 PM EDT [facility] MCH 29.9 27.0 - 32.0 pcg LAB HEMETOLOGY METHOD 08/12/2024 11:16 PM EDT [facility] MCHC 33.9 32.0 - 37.0 g/dL LAB HEMETOLOGY METHOD 08/12/2024 11:16 PM EDT [facility] RDW 12.1 11.0 - 15.0 % LAB HEMETOLOGY METHOD 08/12[facility]2024 [facility] Plate[facility] 399 130 - 400 K/mcL LAB HEMETOLOGY METHOD 08/12/2024 11:16 PM [facility] MPV 9.7 7.0 - 11.0 FL LAB HEMETOLOGY METHOD 08/12/2024 11:[facility] NRBC 0.0 <1.0 % LAB [...] % LAB HEMETOLOGY METHOD 08/12/2024 11:[facility] Neutrophils Absolute 6.24 1.50 - 7.00 K/mcL LAB HEMETOLOGY METHOD 08/12/2024 11:[facility] Lymphocytes Absolute 2.33 1.00 - 5.00 K/mcL LAB HEMETOLOGY METHOD 08/12/2024 11:16 PM EDT [facility] Monocytes Absolute 0.70 0.20 - 1.00 K/[facility] LAB HEMETOLOGY METHOD 08/12/2024 11:16 PM EDT [facility] Eosinophils Absolute 0.28 0.00 - 0.50 K/[facility] LAB HEMETOLOGY METHOD 08/12/2024 11:16 PM EDT [facility] Basophils Absolute 0.09 0.00 - 0.20 K/[facility] LAB HEMETOLOGY METHOD 08/12/2024 11:16 PM EDT [facility] Immature Granulocytes Absolute 0.16(H) 0.00 - 0.03 K/[facility] LAB HEMETOLOGY METHOD 08/12/2024 11:16 PM EDT [facility] Blood Venous blood specimen / Unknown Venipuncture / Unknown 08/12/2024 10:25 PM EDT 08/12/2024 11:05 PM EDT Henrietta NUÑEZ LAB BLOOD ORDERABLES Final Result [facility] [address] [place] [address], * (ABNORMAL) Comprehensive metabolic panel (08/12/2024 10:25 PM EDT) Sodium 138 133 - 145 mmol/L LAB CHEMISTRY METHOD 08/12/2024 11:52 PM EDT [facility] Potassium 3.9 3.5 - 5.5 mmol/L LAB CHEMISTRY METHOD 08/12/2024 11:52 PM EDT [facility] Chloride 104 96 - 110 mmol/L LAB CHEMISTRY METHOD 08/12/2024 11:52 PM EDT [facility] CO2 26 21 - 32 mmol/L LAB CHEMISTRY METHOD 08/12/2024 11:52 PM EDT [facility] Anion Gap 8 3 - [...] 08/12/2024 11:52 PM [facility] eGFR 119 >=60 mL/min/1. [...] unit/L LAB CHEMISTRY METHOD 08/12/2024 11:52 PM [facility] ALT (SGPT) 68(H) 10 - 60 unit/L LAB CHEMISTRY METHOD 08/12/2024 11:52 PM [facility] Alkaline Phosphatase 78 42 - 121 unit/L LAB CHEMISTRY METHOD 08/12/2024 11:52 PM [facility] Total Protein 7.8 6.0 - 8.0 g/dL LAB CHEMISTRY METHOD 08/12/2024 11:52 PM [facility] Albumin 4.4 3.2 - 5.0 g/dL LAB CHEMISTRY METHOD 08/12/2024 11:52 PM [facility] Total Bilirubin 0.3 0.0 - 1.4 mg/dL LAB CHEMISTRY METHOD 08/12/2024 11:52 PM EDT [facility] ([facility]) [facility] Blood Venous blood specimen / Unknown Venipuncture / Unknown 08/12/2024 10:25 PM EDT 08/12/2024 11:05 PM EDT us Henrietta NUÑEZ LAB BLOOD ORDERABLES Final Result [facility] ([facility]) [facility] [address] [place] [address], from Last 3 Months Insurance MEDICAID - [place] Care Teams Mica Sizer Relationship Specialty Start Date End Date Quinton Casey PA [address] [place] [phone] PCP - General Physician Medical Transcription Supervisor 08/12/24
[2024-09-15 14:14] VITALS: BMI 31.4
--- NOTE | 2024-09-16 11:39 | HO.ANESPROP2 ---
Documented by User: Tamra Medel NP 09/16/24 11:39 HPI - Anesthesia Eval Consult details Narrative: 29yo M for Upper Endoscopy and Colonoscopy PMF Active Problems Active Problems: All Active Problems Frequent loose stools (Acute) Annual physical exam (Acute) Abnormal LFTs (Acute) Dark stools (Acute) Positive NA (antinuclear antibody) (Acute) Exposure to COVID-19 virus (Acute) Nausea (Acute) PUD (peptic ulcer disease) (Acute) Polyarthralgia (Acute) Cervicalgia (Acute) Lumbar spine pain (Acute) Leukocytosis (Acute) Hyperkalemia (Acute) Past Medical History Medical History Asthma GERD (gastroesophageal reflux disease) Family History Family History Maternal Uncle Colon cancer Maternal Grandmother Colon cancer Surgical History Surgical History Hx of colonoscopy Hx of cervical spine surgery Hx of appendectomy History of esophagogastroduodenoscopy (EGD) Social History Social History Household Members Other:: brother Housing: Apartment Are you a primary healthcare economics manager to a significant other at home: No Do you presently have visiting nurse or other home services: No Patient Tobacco Use Status: Former Tobacco user e-Cigarette/Vaping Use: Never Used Second Hand Smoke Exposure: No Have you been hit, kicked, punched, or otherwise hurt by someone within the past year? 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- [employer] Cognitive needs: No Hearing needs: No Vision needs: No Meds Allergies Allergy/AdvReac Type Severity Reaction Status Date / Time shellfish derived Allergy Mild Unknown Verified 09/17/24 09:19 Home Medications ?Medication ?Instructions ?Recorded ?Confirmed ?Last Taken ?Type omeprazole 40 mg-sodium 1 cap PO DAILY 09/17/24 09/17/24 Unknown History bicarbonate 1.1 gram capsule Exam Height,Weight and Vital Signs: Height 5 ft 5 in Weight 85.729 kg Assessment and Plan Assessment Anesthesia Assessment: Chart Reviewed Documented by User: Darline White MD 09/17/24 10:01 PMF Past Medical History Medical History Asthma GERD (gastroesophageal reflux disease) Family History Family History Maternal Uncle Colon cancer Maternal Grandmother Colon cancer Surgical History Surgical History Hx of colonoscopy Hx of cervical spine surgery Hx of appendectomy History of esophagogastroduodenoscopy (EGD) History of Problems with Anesthesia: No Social History Social History Household Members Other:: brother Housing: Apartment Are you a primary healthcare economics manager to a significant other at home: No Do you presently have visiting nurse or other home services: No Patient Tobacco Use Status: Former Tobacco user e-Cigarette/Vaping Use: Never Used Second Hand Smoke Exposure: No Have you been hit, kicked, punched, or otherwise hurt by someone within the past year? 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- [employer] Cognitive needs: No Hearing needs: No Vision needs: No Meds Allergies Allergy/AdvReac Type Severity Reaction Status Date / Time shellfish derived Allergy Mild Unknown Verified 09/17/24 09:19 Home Medications ?Medication ?Instructions ?Recorded ?Confirmed ?Last Taken ?Type omeprazole 40 mg-sodium 1 cap PO DAILY 09/17/24 09/17/24 Unknown History bicarbonate 1.1 gram capsule Exam Airway Mallampati Class: II TM Dist: >3cm Loose/Missing/Broken Teeth: No Heart: RRR Lungs: CTA Assessment and Plan Assessment Anesthesia Assessment: Anesthesia Plan Discussed Final Anesthetic Review History of Problems with Anesthesia: No NPO: Yes ASA Class: II Final Preanesthetic Review: Meds/Allgs Chart Reviewed, Consent Obtained/Reviewed and Anes Risks/Benef Reviewed Patient Risk: Low Procedure Risk: Low Anesthetic Plan Anesthetic Plan: MAC: Disposition: Standard PACU
[2024-09-17] MEDS: Lactated Ringers 1,000 ML 100 ML IVCONT (09:07)
[2024-09-17 09:08] VITALS: BP 137/90; PULSE 100; RESP 18; TEMP 36.7; O2SAT 96
[2024-09-17 09:18] VITALS: BMI 30.9
--- NOTE | 2024-09-17 09:59 | MHC.SHP ---
Pre-Procedural Eval Section A - 24 Hr Update-Section A only Date of Service: 09/17/24 Section B - Complete if H&P > 30 days Chief Complaint: Change in bowel habit Relevant Family History (Specify if Yes): No Relevant Social History: None Present Medications: see Short Stay Collaborative assessment Medical History: Significant History (RA) History of Previous Operations: Relevant previous surgery/procedure and date(s) (appendectomy) Allergies: Allergies Allergy/AdvReac Type Severity Reaction Status Date / Time shellfish derived Allergy Mild Unknown Verified 09/17/24 09:19 Review of Systems Sugical H&P ROS: Negative: Constitution, Cardiovascular, Respiratory, Neurological, Psychiatric, Hem-Onc, Allergic/Immunologic, Gastrointestinal, Genitourinary, Musculoskeletal, Integumentary, Endocrine and Eyes/Ears/Nose/Throat Exam Surgical H&P Exam: Normal: HEENT, Normal: Heart, Normal: Lungs, Normal: Extremities, Normal: Abdomen, Normal: Skin and Normal: Neurological Plan Diagnosis/Plan: Unchanged I have reviewed the history and physical and performed a pertinent physical examination on my patient. No changes have occurred unless specified. Time Spent With Patient Time: Total time managing care of this patient today ____ minutes.
--- NOTE | 2024-09-17 10:25 | HO.OPN-COLON ---
Colonoscopy Operative Note Operative Note Date of Service: 09/17/24 Narrative: Operative Information Procedure Description: EGD, Colonoscopy Indication: GERD, abn bowel habits Anesthesia: MAC FLEXIBLE TRANSORAL UPPER GASTROINTESTINAL ENDOSCOPY AND COLONOSCOPY PROCEDURE NOTE UPPER ENDOSCOPY Consent: Indications for the procedure and potential complications of bleeding, perforation, reaction to medications and missed diagnosis were discussed with the patient and informed consent was obtained. Instrument: Olympus GIF H 190 J mid size upper endoscope Monitoring: Vital signs and clinical assessment, continuous EKG monitoring, Pulse oximetry, Carbon Dioxide monitoring and blood pressure monitoring were done throughout the procedure. Procedure: The patient was placed in the left lateral decubitis position and pre-procedure medications were administered and a bite block was placed. The endoscope was inserted into the mouth and advanced under direct vision to the third part of duodenum. A careful inspection was made as the upper endoscope was withdrawn including a retroflexed examination of the proximal stomach; Findings and interventions are described below. Findings: Larynx:normal Esophagus: GE junction at 35 cm, diaphragm hiatus at 37 cm, consistent with 2 cm fixed hiatal hernia, schatzki ring noted with mild esophagitis, bx taken from GEJ, distal and proximal esophagus Stomach: mild erythema. Biopsies were obtained. Grade 2 flap valve on retroflexed examination of the cardia. Duodenum: Normal bulb and descending duodenum, bx taken Intervention: Biopsies as noted above, COLONOSCOPY Instrument: Olympus variable stiffness pediatric scope 190L Colonoscopy Monitoring: Vital signs and clinical assessment, continuous EKG monitoring, Pulse oximetry, Carbon Dioxide monitoring and blood pressure monitoring were done throughout the procedure. Colon withdrawal time was 10 minutes. Procedure: The patient was placed in the left lateral decubitis position and pre-procedure medications were administered. After a digital rectal examination of the ano-rectum, the video colonoscope was inserted into the rectum and advanced through the colon to the cecum/TI. The colonoscope was slowly withdrawn in a retrograde panoramic fashion and the colon mucosa was carefully examined including a retroflexed view of the rectum. Findings and interventions are described below. Procedure Difficulty: easy Findings: Terminal Ileum-normal, bx taken random bx taken from right, left and rectum in seperate jars Cecum:normal Ascending Colon: normal Transverse Colon -normal Descending Colon:normal Sigmoid Colon: mild diverticulosis Rectum: Retroflexion with small internal hemorrhoids, grade I Anorectum - normal Colon preparation: [place] Bowel Preparation Scale Right colon; 3 Transverse colon: 3 Left colon; 3 (0 = Unprepared colon segment with mucosa not seen due to solid stool that cannot be cleared. 1 = Portion of mucosa of the colon segment seen, but other areas of the colon segment not well seen due to staining, residual stool and/or opaque liquid. 2 = Minor amount of residual staining, small fragments of stool and/or opaque liquid, but mucosa of colon segment seen well. 3 = Entire mucosa of colon segment seen well with no residual staining, small fragments of stool or opaque liquid) Impression and Post Procedure Diagnosis: Endoscopy Findings: schatzki ring hiatal hernia esophagitis, mild Colonoscopy Findings: mild diverticulosis internal hemorrhoids Plan: Await Pathology results Repeat Colonoscopy aged 45 years or earlier if clinically indicated High fiber diet leaflet avoid straining at stool, epsom salts and sitz bath, anusol supps or cream GERd precautions, can consider surgical referral for hernia Above findings were reviewed with the patient and relevant handouts were provided if indicated.
[2024-09-17 10:29] VITALS: BP 111/65; PULSE 90; RESP 12; TEMP 37.1; O2SAT 96
[2024-09-17 10:44] VITALS: BP 111/76; PULSE 101; RESP 18; TEMP 36.6; O2SAT 96
== END 2024-09-17 10:50 | disposition home or self-care (01) ==
PROVIDERS: PCP Physician Assistant; Visit Provider Internal Medicine Gastroenterology
PROC: (CPT 45380; principal; 2024-09-17 10:50)
DX: R19.4 Change in bowel habit (principal); K57.30 Diverticulosis of large intestine without perforation or abscess without bleeding; K64.0 First degree hemorrhoids; K21.9 Gastro-esophageal reflux disease without esophagitis; K20.80 Other esophagitis without bleeding; K22.2 Esophageal obstruction; K44.9 Diaphragmatic hernia without obstruction or gangrene; Z79.899 Other long term (current) drug therapy; Z87.891 Personal history of nicotine dependence
CPT/HCPCS: 45380; 43239; 88305; 88313; 88342; J2003; J2704

== ENCOUNTER → 2024-09-17 08:30 | Outpatient (BNV) | payer OTHER, SELFPAY | PROVIDERS: PCP Physician Assistant; Visit Provider Internal Medicine Gastroenterology | DX: K21.00 Gastro-esophageal reflux disease with esophagitis, without bleeding (principal); K22.2 Esophageal obstruction; R19.4 Change in bowel habit; K57.30 Diverticulosis of large intestine without perforation or abscess without bleeding; K64.0 First degree hemorrhoids | CPT/HCPCS: 43239; 45380 ==

== ENCOUNTER 2024-10-09 10:54 | Outpatient (AMB) | payer OTHER, SELFPAY ==
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
[2024-10-09 11:07] VITALS: BP 141/89; PULSE 98; TEMP 36.4; O2SAT 98; BMI 30.5
--- OUTSIDE RECORDS SUMMARY | 2024-10-09 12:02 | XMS_ITS | Clinical Summary ---
Author Organization [facility] Address [address] [place] [address] Phone Care Team Providers Care Product Delivery Specialist Name Role Phone Quinton Casey Primary Care Provider Allergies No known active allergies Medications methocarbamoL (ROBAXIN) 750 mg tablet Take 1 tablet (750 mg total) by mouth 4 (four) times a day for 10 days. 20 each 08/13/2024 Active Encounters Date Type Department Care Team Description 08/12/2024 7:47 PM EDT - 08/13/2024 12:41 AM EDT Emergency [facility] Emergency [address] [place] [address] Lumbar strain, initial encounter (Primary [...] 80 08/12/2024 11:10 PM EDT Temperature 36.6 C (97.9 F) 08/12/2024 11:10 PM EDT Respiratory Rate 16 08/12/2024 11:10 PM EDT [...] MD on 08/12/2024 23:33:25 us Henrietta NUÑEZ IMTenzin US PROCEDURES Final Re sult * (ABNORMAL) Urinalysis with reflex microscopic and culture (08/12/2024 10:25 PM EDT) Specific [place] Urine 1.026 1.003 - 1.030 LAB URINALYSIS - AUTOMATED METHOD 08/12/2024 11:14 PM [facility] pH, Urine 7.5 5.0 - 8.0 pH LAB URINALYSIS - AUTOMATED METHOD 08/12/2024 11:14 PM [facility] Leukocytes, Urine Negative Negative LAB URINALYSIS - AUTOMATED METHOD 08/12/2024 11:14 PM [facility] Nitrite, Urine Negative Negative LAB URINALYSIS - AUTOMATED METHOD 08/12/2024 11:14 PM T [facility] Protein, Urine Trace <=Trace mg/dL LAB URINALYSIS - AUTOMATED METHOD 08/12/2024 11:14 PM [facility] Glucose, Urine Negative Negative mg/dL LAB URINALYSIS - AUTOMATED METHOD 08/12/2024 11:14 PM [facility] Ketones, Urine Trace(A) Negative mg/dL LAB URINALYSIS - AUTOMATED METHOD 08/12/2024 11:14 PM [facility] Urobilinogen, Urine 1.0 0.2 - 1.0 mg/dL LAB URINALYSIS - AUTOMATED METHOD 08/12/2024 11:14 PM [facility] Bilirubin, Urine Negative Negative LAB URINALYSIS - AUTOMATED METHOD 08/12/2024 11:14 PM [facility] Blood, Urine Negative Negative LAB URINALYSIS - AUTOMATED METHOD 08/12/2024 11:14 PM T [facility] Urine Urine specimen obtained by clean catch procedure / Unknown Non-blood Collection / Unknown 08/12/2024 10:25 PM EDT 08/12/2024 11:05 PM EDT us Henrietta NUÑEZ LAB URINE ORDERABLES Final Result [facility] [address] [place] [address], [place] [phone] * [facility] urine culture tube (08/12/2024 10:25 PM EDT) Pathologist [facility] Extra Tube Hold for add-ons. 08/13/2024 1:01 AM EDT [facility] Comment:Auto resulted. Urine Urine specimen obtained by clean catch procedure / Unknown Non-blood Collection / Unknown 08/12/2024 10:25 PM EDT 08/12/2024 11:05 PM EDT us Henrietta NUÑEZ LAB URINE ORDERABLES Final Result [facility] [address] [place] [address], [place] [phone] * (ABNORMAL) CBC auto differential (08/12/2024 10:25 PM EDT) [facility] WBC 9.8 4.8 - 10.8 K/mcL LAB HEMETOLOGY METHOD 08/12/2024 11:16 PM EDT [facility] RBC 4.80 4.50 - 5.50 M/mcL LAB HEMETOLOGY METHOD 08/12/2024 11:16 PM EDT [facility] Hemoglobin 14.2 13.5 - 17.5 g/dL LAB HEMETOLOGY METHOD 08/12/2024 11:16 PM EDT [facility] Hematocrit 41.9(L) 42.0 - 54.0 % LAB HEMETOLOGY METHOD 08/12/2024 11:16 PM EDT [facility] MCV 88.2 79.0 - 98.0 FL LAB HEMETOLOGY METHOD 08/12/2024 11:16 PM EDT [facility] MCH 29.9 27.0 - 32.0 pcg LAB HEMETOLOGY METHOD 08/12/2024 11:16 PM EDT [facility] MCHC 33.9 32.0 - 37.0 g/dL LAB HEMETOLOGY METHOD 08/12/2024 11:16 PM EDT [facility] RDW 12.1 11.0 - 15.0 % LAB [facility]ETOLOGY [facility] 399 130 - 400 K/mcL [facility]EMETOLOGY [facility] MPV 9.7 7.0 - 11.0 FL LAB HEMETOLOGY METHOD [facility] NRBC 0.0 <1.0 % LAB HEMETOLOGY METHOD [facility] NRBC Absolute 0.00 <0.10 K/mcL LAB HEMETOLOGY METHOD 08/12/2024 11:16 PM [facility] Neutrophils Relative 63.7 % LAB HEMETOLOGY METHOD 08/12/2024 11:16 PM [facility] Lymphocytes Relative 23.8 % LAB HEMETOLOGY METHOD 08/12/2024 11:16 PM [facility] Monocytes Relative 7.1 % LAB HEMETOLOGY METHOD 08/12/2024 11:16 PM [facility] Eosinophils Relative 2.9 % LAB HEMETOLOGY METHOD 08/12/2024 11:16 PM [facility] Basophils Relative 0.9 % LAB HEMETOLOGY METHOD 08/12/2024 11:16 PM EDT [facility] Immature Granulocytes Relative 1.6 % LAB HEMETOLOGY METHOD [facility] Neutrophils Absolute 6.24 1.50 - 7.00 K/mcL LAB HEMETOLOGY METHOD [facility] Lymphocytes Absolute 2.33 1.00 - 5.00 K/mcL LAB HEMETOLOGY METHOD 08/12/2024 11:16 PM EDT [facility] Monocytes Absolute 0.70 0.20 - 1.00 K/mcL LAB HEMETOLOGY METHOD 08/12/2024 11:16 PM EDT [facility] Eosinophils Absolute 0.28 0.00 - 0.50 K/mcL LAB HEMETOLOGY METHOD 08/12/2024 11:16 PM EDT [facility] Basophils Absolute 0.09 0.00 - 0.20 K/mcL LAB HEMETOLOGY METHOD 08/12/2024 11:16 PM EDT [facility] Immature Granulocytes Absolute 0.16(H) 0.00 - 0.03 K/mcL LAB HEMETOLOGY METHOD 08/12/2024 11:16 PM EDT [facility] Blood Venous blood specimen / Unknown Venipuncture / Unknown 08/12/2024 10:25 PM EDT 08/12/2024 11:05 PM EDT us Henrietta NUÑEZ LAB BLOOD ORDERABLES Final Result [facility] [address] [place] [address], * (ABNORMAL) Comprehensive metabolic panel (08/12/2024 10:25 PM EDT) Sodium 138 133 - 145 mmol/L LAB CHEMISTRY METHOD 08/12/2024 11:52 PM EDT [facility] Potassium 3.9 3.5 - 5.5 mmol/L LAB CHEMISTRY METHOD 08/12/2024 11:52 PM EDT [facility] Chloride 104 96 - 110 mmol/L LAB CHEMISTRY METHOD 08/12/2024 11:52 PM EDT [facility] CO2 26 21 - 32 mmol/L LAB CHEMISTRY METHOD 08/12/2024 11:52 PM EDT [facility] Anion Gap 8 3 - 11 LAB CHEMISTRY METHOD 08/12/2024 11:52 PM [facility] Glucose 104(H) 70 - 100 mg/dL LAB CHEMISTRY METHOD 08/12/2024 11:52 PM [facility] BUN 13 5 - 25 mg/dL LAB CHEMISTRY METHOD 08/12/2024 11:52 PM [facility] Creatinine 0.85 0.70 - 1.30 mg/dL LAB CHEMISTRY METHOD 08/12/2024 11:52 PM [facility] eGFR 119 >=60 mL/min/1. 73m2 LAB CHEMISTRY METHOD 08/12/2024 11:52 PM [facility] Comment:Calculation based on the Chronic Kidney Disease Epidemiology Collaboration (CKD-EPI) equation refit without adjustment for race. BUN/Creatinine Ratio 15.3 LAB CHEMISTRY METHOD 08/12/2024 11:52 PM [facility] Calcium 9.2 8.5 - 10.5 mg/dL LAB CHEMISTRY METHOD 08/12/2024 11:52 PM [facility] AST (SGOT) 28 10 - 42 unit/L LAB CHEMISTRY METHOD 08/12/2024 11:52 PM [facility] ALT (SGPT) 68(H) 10 - 60 unit/L LAB CHEMISTRY METHOD 08/12/2024 11:52 PM [facility] Alkaline Phosphatase 78 42 - 121 unit/L LAB CHEMISTRY METHOD 08/12/2024 11:52 PM [facility] Total Protein 7.8 6.0 - 8.0 g/dL LAB CHEMISTRY METHOD 08/12/2024 11:52 PM [facility] Albumin 4.4 3.2 - 5.0 g/dL LAB CHEMISTRY METHOD 08/12/2024 11:52 PM [facility] Total Bilirubin 0.3 0.0 - 1.4 mg/dL LAB CHEMISTRY METHOD 08/12/2024 11:52 PM [facility] Blood Venous blood specimen / Unknown Venipuncture / Unknown 08/12/2024 10:25 PM EDT 08/12/2024 11:05 PM EDT us Henrietta NUÑEZ LAB BLOOD ORDERABLES Final Result [facility] [address] [place] [address], [place] [phone] from Last 3 Months Insurance MEDICAID - [place] [facility] [employer] Care Teams Product Delivery Specialist Relationship Specialty Start Date End Date Quinton Casey PA PCP - General Physician Baby Registry Sales Consultant 08/12/24
== END 2024-10-09 11:56 | disposition home or self-care (01) ==
LOC: HO.HBS 10:54
PROVIDERS: PCP Physician Assistant; Visit Provider Surgery
DX: K44.0 Diaphragmatic hernia with obstruction, without gangrene (principal)
CPT/HCPCS: 99205

== ENCOUNTER → 2024-10-09 10:54 | Outpatient (BNVA) | payer OTHER, SELFPAY | PROVIDERS: PCP Physician Assistant; Visit Provider Surgery | DX: K44.9 Diaphragmatic hernia without obstruction or gangrene (principal) | CPT/HCPCS: 99202 ==

== ENCOUNTER 2024-11-27 11:08 | Outpatient (REF) | payer OTHER, SELFPAY ==
--- NOTE | ~2024-11-27 | XR_ITS ---
EXAMINATION: XR HAND 3 VIEWS BILATERAL HISTORY: M25.50 - Pain in unspecified joint COMPARISON: There are no prior studies available for comparison. FINDINGS: Six views of the bilateral hands are submitted. Osseous mineralization is normal. There is no fracture or dislocation. The joint spaces are preserved. The soft tissues are unremarkable. XR/XR Hand Bilat min 3v IMPRESSION: Unremarkable examination of the bilateral hands. Electronically signed by: Josh Solares MD 11/27/2024 01:29 PM EDT
--- NOTE | ~2024-11-27 | XR_ITS ---
EXAMINATION: XR WRIST 3 OR MORE VIEWS BILATERAL HISTORY: M25.50 - Pain in unspecified joint COMPARISON: There are no prior studies available for comparison. FINDINGS: Eight views of the bilateral wrists including bilateral scaphoid views are submitted. Osseous mineralization is normal. There is no fracture or dislocation. The joint spaces are preserved. The soft tissues are unremarkable. XR/XR Wrist Tony min 3V IMPRESSION: Unremarkable examination of the bilateral wrists. Electronically signed by: Josh Solares MD 11/27/2024 01:28 PM EDT
--- NOTE | ~2024-11-27 | XR_ITS ---
EXAMINATION: XR KNEE 3 VIEWS BILATERAL HISTORY: M25.50 - Pain in unspecified joint COMPARISON: There are no prior studies available for comparison. FINDINGS: Standing AP views of both knees and additional lateral and sunrise patellar views of the bilateral knees are submitted. Osseous mineralization is normal. There is no fracture or dislocation. The joint spaces are preserved. The soft tissues are unremarkable. There is no joint effusion. XR/XR Knee Tony 3V IMPRESSION: Unremarkable examination of the bilateral knees. Electronically signed by: Josh Solares MD 11/27/2024 01:31 PM EDT
[2024-11-27 13:02] LABS: MANUAL DIFF FLAG NO
[2024-11-27 13:43] LABS: Hematocrit 42.4 % (42.0-52.0); Hemoglobin 14.1 g/dl (14.0-18.0); Imm Gran Abs Auto 0.08 X10*3/uL (0.00-0.03); Imm Gran Pct Auto 1.3 % (0.0-0.4); Lymphocytes Absolute Auto 1.9 X10*3/uL (1.2-4.9); Mean Corpuscular HGB Conc 33.3 g/dl (31.0-36.0); Mean Corpuscular Hemoglobin 29.4 pg (27.0-33.0); Mean Corpuscular Volume 88.3 fL (80.0-98.0); NRBC Abs Auto 0.000 X10*3/uL (0.0-0.012); NRBC Pct Auto 0.0 /100WBC (0.0-0.2); Platelet Count 361 X10*3/uL (160-400); Red Blood Count 4.80 X10*6/uL (4.60-5.80); White Blood Count 6.3 X10*3/uL (4.8-10.8)
[2024-11-27 13:53] LABS: Appearance Urine Clear; Glucose Urine UA Negative (Negative); PH 7.0 (5.0-9.0); Specific Gravity - Urine 1.020 (1.005-1.025)
[2024-11-27 14:54] LABS: Total Protein Urine Random < 7 mg/dL (<12)
[2024-12-01 18:13] LABS: Antibody to SS-A Antigen <1.0 NEG AI (<1.0 NEG); Antibody to SS-B Antigen <1.0 NEG AI (<1.0 NEG); SM/Ribonucleoprotein Ab <1.0 NEG AI (<1.0 NEG); Smith Protein <1.0 NEG AI (<1.0 NEG)
[2024-12-03 10:32] LABS: Anti Nuclear Antibody Pattern Nuclear, Speckled; Anti Nuclear Antibody Screen POSITIVE (NEGATIVE); Anti Nuclear Antibody Titer 1:160 titer
== END 2024-11-27 11:09 | disposition home or self-care (01) ==
LOC: HO.XRAY 11:08
PROVIDERS: PCP Physician Assistant; Visit Provider Student in an Organized Health Care Education/Training Program
DX: M25.532 Pain in left wrist (principal); M25.531 Pain in right wrist; M25.562 Pain in left knee; M25.561 Pain in right knee; M25.572 Pain in left ankle and joints of left foot; M25.571 Pain in right ankle and joints of right foot; D68.61 Antiphospholipid syndrome; R76.8 Other specified abnormal immunological findings in serum; K21.9 Gastro-esophageal reflux disease without esophagitis; M54.2 Cervicalgia; M54.9 Dorsalgia, unspecified; Z79.899 Other long term (current) drug therapy
CPT/HCPCS: 36415; 73110; 73130; 73562; 81001; 82570; 82784; 84156; 85025; 85597; 85598; 85613; 85652; 85730; 86038; 86039; 86140; 86146; 86147; 86160; 86200; 86225; 86235; 86431; 99202

== ENCOUNTER 2024-11-27 11:08 | Outpatient (AMB) | payer OTHER, SELFPAY ==
--- OUTSIDE RECORDS SUMMARY | 2024-11-27 11:17 | XMS_ITS | Clinical Summary ---
Author Organization [facility] Address [address] [place] [address] Phone Care Team Providers Care E Commerce Merchant Name Role Phone Quinton Casey Primary Care Provider Allergies No known active allergies Medications methocarbamoL (ROBAXIN) 750 mg tablet Take 1 tablet (750 mg total) by mouth 4 (four) times a day for 10 days. 20 each 08/13/2024 Active Social History Tobacco Use Types Packs/Day Years [...] of 3 - 19+ 3-dose series) 2012 HIV Screening 03/18/2022 Hepatitis C Screening 03/18/2022 Social Influencers of Health Screening 03/18/2022 COVID-19 Vaccine (1 - 2023-2 5 season) 2023 Depression Screening 04/15/2024 Influenza Vaccine (#1) 2024 HIB Vaccines Aged Out No longer [...] 5 Years) and At-Risk Patients (6 to 49 Years) Aged Out No longer eligible b ased on patient's age to complete this topic RSV Immunization Patients Un malissa 20 months Aged Out No longer eligible b ased on patient's age to complete this topic Varicella Vaccines Aged Out No longer eligible based on patient's age to complete this topic Insurance MEDICAID - [place] [facility] Care Teams E Commerce Merchant Relationship Specialty Start Date End Date Quinton Casey PA PCP - General Physician Tile Ditcher 08/12/24
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
[2024-11-27 11:38] VITALS: BP 140/80; PULSE 77; O2SAT 98; BMI 30.3
== END 2024-11-27 12:12 | disposition home or self-care (01) ==
LOC: HO.RHES 11:09
PROVIDERS: PCP Physician Assistant; Visit Provider Student in an Organized Health Care Education/Training Program
DX: M25.50 Pain in unspecified joint (principal)
CPT/HCPCS: 99204

== ENCOUNTER → 2024-11-27 12:58 | Outpatient (BNV) | payer OTHER, SELFPAY | PROVIDERS: PCP Physician Assistant; Visit Provider Radiology Diagnostic Radiology | DX: M25.569 Pain in unspecified knee (principal); M25.539 Pain in unspecified wrist; M79.643 Pain in unspecified hand | CPT/HCPCS: 73110; 73130; 73562 ==

== ENCOUNTER 2024-12-07 13:46 | Outpatient (REF) | payer OTHER, SELFPAY ==
--- NOTE | ~2024-12-07 | US_ITS ---
EXAMINATION: US ABDOMEN LIMITED WITH LIVER ELASTOGRAPHY HISTORY: K75.81 - Nonalcoholic steatohepatitis (BRUCE) TECHNIQUE: Real-time grayscale ultrasound imaging of the right upper quadrant was performed and images were reviewed. COMPARISON: There are no prior studies available for comparison. FINDINGS: Liver: The right lobe of the liver measures 14.8 cm in size. The left lobe of the liver measures 10.1 cm in size. The liver demonstrates increased echotexture, consistent with steatosis. No focal mass or intrahepatic biliary ductal dilatation is identified. There is normal hepatopedal flow in the portal vein. Ultrasound elastography of the liver was performed with 10 separate measurements of the liver parenchyma with the patient in the supine position. Measurements were obtained approximately 2 cm below Zack's capsule and perpendicular to the capsule. The median shear wave velocity is 1.34 m/s. The interquartile range/median (IQR/median) is 0.09. Gallbladder and biliary tree: The gallbladder is unremarkable, without evidence of calculi, wall thickening, or pericholecystic fluid. There is no sonographic Pacheco sign. The common bile duct is normal in caliber measuring 2 mm. Right Kidney: The right kidney measures 10.5 cm in length. The right kidney is unremarkable, without evidence of masses, hydronephrosis, or calculi. Pancreas: The pancreatic head, neck, and body are unremarkable. The pancreatic tail is obscured by bowel gas. Abdominal aorta and inferior vena cava: The visualized portions of the abdominal aorta and inferior vena cava are normal in caliber. There is no free fluid in the right upper quadrant. US/US abdomen mcnamara w elastography IMPRESSION: Hepatic steatosis. The median shear wave velocity in the liver is 1.34 m/s, corresponding to a median liver stiffness of 5.55 kPa. The IQR/median value is 0.09. This is indicative of a quality data set. Findings are indicative of a low elastography value which rules out advanced chronic liver disease in asymptomatic patients. REFERENCE: Society of Radiologists in Ultrasound Liver Stiffness Thresholds (2020): LIVER STIFFNESS THRESHOLDS: *Shear wave velocity less than 1.3 m/s (Liver Stiffness equal or less than 5 kPa): High probability of being normal. *Shear wave velocity less than 1.7 m/s (Liver Stiffness less than 9 kPa): In the absence of other known clinical signs, rules out compensated advanced chronic liver disease. *Shear wave velocity between 1.7-2.1 m/s (Liver Stiffness 9-13 kPa): Suggestive of compensated advanced chronic liver disease but need further test for confirmation. *Shear wave velocity between 2.1-2.4 m/s (Liver Stiffness 13-17 kPa): Rules in compensated advanced chronic liver disease. *Shear wave velocity greater than 2.4 m/s (Liver Stiffness over 17 kPa): Suggestive of clinically significant portal hypertension. QUALITY OF DATA SET: *IQR/Median value equal or less than 0.15 implies a quality data set. *IQR/Median value over 0.15 implies a poor quality data set. SIGNIFICANT CHANGE FROM PRIOR EXAM: Significant change if liver stiffness measurement is 10% or greater from prior exam. OTHER CONSIDERATIONS: The stage of liver fibrosis may be overestimated in the setting of acute hepatitis, liver inflammation, elevated liver function tests, hepatic vascular congestion, obstructive cholestasis, non-fasting state, and infiltrative diseases such as amyloidosis and lymphoma. In some patients with NAFLD, the liver stiffness thresholds for compensated advanced chronic liver disease may be lower. In causes other than viral hepatitis and NAFLD, liver stiffness thresholds are not well established. Electronically signed by: Josh Solares MD 12/07/2024 02:46 PM EDT
--- OUTSIDE RECORDS SUMMARY | 2024-12-07 15:06 | XMS_ITS | Clinical Summary ---
Author Organization [facility] Address [address] [place] [address] Phone Care Team Providers Care Cereal Maker Name Role Phone Quinton Casey Primary Care [...] complete this topic Insurance MEDICAID - [place] [facility] Care Teams Cereal Maker Relationship Specialty Start Date End Date Quinton Casey PA PCP - General Physician Material Crew Supervisor 08/12/24
== END 2024-12-07 13:47 | disposition home or self-care (01) ==
LOC: HO.US 13:46
PROVIDERS: PCP Physician Assistant; Visit Provider Internal Medicine Gastroenterology
DX: K75.81 Nonalcoholic steatohepatitis (NASH) (principal); K74.60 Unspecified cirrhosis of liver; R79.89 Other specified abnormal findings of blood chemistry
CPT/HCPCS: 76705; 76981

== ENCOUNTER → 2024-12-07 13:49 | Outpatient (BNV) | payer OTHER, SELFPAY | PROVIDERS: PCP Physician Assistant; Visit Provider Radiology Diagnostic Radiology | DX: K75.81 Nonalcoholic steatohepatitis (NASH) (principal) | CPT/HCPCS: 76705 ==

== ENCOUNTER 2024-12-08 15:50 | Outpatient (AMB) | payer OTHER, SELFPAY ==
[2024-12-08 15:52] VITALS: BP 130/68; PULSE 91; O2SAT 97; BMI 30.8
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
--- OUTSIDE RECORDS SUMMARY | 2024-12-08 16:37 | XMS_ITS | Clinical Summary ---
Author Organization [facility] Address [address] [place] [address] Phone Care Team Providers Care Route Delivery Service Driver Name Role Phone Quinton Casey Primary Care [...] complete this topic Insurance MEDICAID - [place] [facility] Care Teams Route Delivery Service Driver Relationship Specialty Start Date End Date Quinton Casey PA PCP - General Physician Information Technology Project Manager 08/12/24
== END 2024-12-08 16:23 | disposition home or self-care (01) ==
LOC: HO.RHES 15:50
PROVIDERS: PCP Physician Assistant; Visit Provider Student in an Organized Health Care Education/Training Program
DX: M35.9 Systemic involvement of connective tissue, unspecified (principal); Z51.81 Encounter for therapeutic drug level monitoring; Z79.899 Other long term (current) drug therapy
CPT/HCPCS: 99213

== ENCOUNTER → 2024-12-08 15:50 | Outpatient (BNVA) | payer OTHER, SELFPAY | PROVIDERS: PCP Physician Assistant; Visit Provider Student in an Organized Health Care Education/Training Program | DX: Z51.81 Encounter for therapeutic drug level monitoring (principal); M35.9 Systemic involvement of connective tissue, unspecified; Z79.899 Other long term (current) drug therapy | CPT/HCPCS: 99212 ==

== ENCOUNTER 2025-01-28 09:32 | Outpatient (AMB) | payer OTHER, SELFPAY ==
--- NOTE | 2025-01-28 09:36 | MHC.PC.OV ---
Vital Signs 01/28/25 09:59 Height 5 ft 5 in Weight 183 lb BMI 30.4 BP 130/80 Blood Pressure Location Lt brachial Position Sitting Respiration 18 Pulse 87 Pulse Source Pulse Oximeter Temp 97.3 F Temp Source Temporal Artery Scan Pulse Oximetry (%) 97 Oxygen Delivery Method Room Air Intake Visit Reasons: follow up Specification Consultant Required: No Accompanied by: Self / Same As Patient Allergies shellfish derived Allergy (Mild, Verified 01/28/25 10:09) Unknown Medication List - Last Reconciled 01/28/25 by Quinton Casey PA-C hydroxychloroquine (Plaquenil) 200 mg PO BID 90 days omeprazole-sodium bicarbonate 40-1.1 mg-gram 1 cap PO DAILY Tobacco use date assessed: 01/28/25 Dental Screening Dental Screen Date: 01/28/25 Did you have a dental visit in the last 12 months?: Yes Did you have a dental problem in the last 6 months where you did not have access to dental care?: No Was dental information given to patient?: Patient has dentist HPI follow up HPI Details Patient is a 29-year-old male here today for follow-up visit. Patient has a past medical history significant for peptic ulcer disease and polyarthralgia. Concern--> The patient has been exposed to mold for an extended period, leading to concerns about memory loss and potential exacerbation of his symptoms. .. Undifferentiated Connective tissue disease: This recently found to have positive NA to which he has followed up with [place] [facility] and has been started on hydroxychloroquine. Reports the hydrochloroquine makes him sick though continues to use the medication as he would like to decrease his joint pain. --> He reports he did have some prednisone left over and a muscle relaxer which she has been taking over the last week and feels much better. We did discuss the long-term affects on taking prednisone for long period of time he does understand. .. Hiatal hernia: Followed by [place] [facility], he has been working on dietary modifications. Continues with the PPI therapy. He is considering surgery to fix his hiatal hernia Laboratory Tests 08/18/24 11/27/24 15:14 12:58 RBC 4.80 Total Creatine Kin ase 200 H C-Reactive Protein 1.41 H AN Pattern Nuclear, Speckled A [facility] Medical History Asthma GERD (gastroesophageal reflux disease) Surgical History History of mandibular surgery Hx of colonoscopy Hx of cervical spine surgery Hx of appendectomy History of esophagogastroduodenoscopy (EGD) Family History Maternal Uncle Colon cancer Maternal Grandmother Colon cancer Social History Household Members Other:: brother Housing: Apartment Are you a primary med care manager to a significant other at home: No Do you presently have visiting nurse or other home services: No Alcohol intake: former Patient Tobacco Use Status: Former Tobacco user e-Cigarette/Vaping Use: Never Used Second Hand Smoke Exposure: No service: No Current occupational status: employed 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- [employer] Cognitive needs: No Hearing needs: No Vision needs: No Questionnaire Thrive Questionnaire Date Thrive assessed: 08/18/24 I am a: Patient What is your living situation today?: I have a steady place to live Within the past 12 months, did the food you bought not last and you didn't have the money to get more?: Never true Within the past 12 months, did you worry whether your food would run out before you got money to buy more?: Never true Do you have trouble paying for medicines?: No Do you have trouble getting transportation to medical appointments?: No Do you have trouble paying your heating and electricity bill?: No Do you have trouble taking care of your child, family member or friend?: No Do you have trouble with day-to-day activities such as bathing, preparing meals, shopping, managing finances, etc.?: No Are you currently unemployed and looking for a job?: No Are you interested in more education?: No Please select the resources that you would like help with: None Currently or been in a relationship where the following occur: No concerns reported THRIVE Score: 0 BLAIR-7 AMB Questionnaire BLAIR-7 Date BLAIR - 7 assessed: 08/18/24 Source: Developed by Drs. Josh Bangura, Isabell Bailey, Silver Liz and colleagues, with an educational anabella from [employer]. Review of Systems Const Denies headache(s) Eyes Denies loss of vision ENT Denies vertigo, Denies dizziness, Denies headache(s) and Denies sore throat Card Denies chest pain, Denies leg edema and Denies lightheadedness Resp Denies cough, Denies hemoptysis and Denies wheezing GI Denies abdominal pain, Denies melena, Denies constipation, Reports dyspepsia, Reports heartburn, Denies diarrhea and Denies vomiting Denies dysuria, Denies urinary frequency and Denies urinary urgency Musc Reports back pain, Reports arthralgias, Reports joint swelling, Denies numbness and Denies tingling Neuro Denies Abnormal speech present, Denies behavioral changes, Denies vertigo, Denies dizziness, Denies headache(s), Denies loss of vision, Denies memory loss, Denies numbness and Denies tingling Psych Denies anxiety, Denies behavioral changes, Denies depression, Denies memory loss and Denies panic attacks Davin/Lymph Denies easy bleeding and Denies easy bruising Aller/Immun Denies wheezing Physical exam (Primary Care) Vital Signs: Last Vital Signs Temp 97.3 F 01/28/25 09:59 Pulse 87 01/28/25 09:59 Resp 18 01/28/25 09:59 BP 130/80 01/28/25 09:59 Pulse Ox 97 01/28/25 09:59 Oxygen Delivery Method Room Air 01/28/25 09:59 BMI result Body Mass Index 30.4 Tobacco/Smoking Status: Tobacco use Status Tobacco use date assessed 01/28/25 01/28/25 09:39 Patient Tobacco Use Status Former Tobacco user 01/28/25 09:39 e-Cigarette/Vaping Use Never Used 01/28/25 09:39 Thrive Assessment: Date of Thrive Assessment Date Thrive assessed 08/18/24 01/28/25 09:39 Currently or been in a relationship where the following occur: No concerns reported Const General: healthy appearing, no acute distress, alert and awake Nutritional Appearance: well nourished Orientation/consciousness: oriented to person, oriented to place and oriented to time HENMT Ears: TM's normal bilaterally General nose exam: Normal nasal mucous membranes and turbinates present Eyes Conjunctivae: conjunctivae normal Sclerae: sclerae normal Pupils: Equal, round and reactive pupils present Neck Neck: Yes no lymphadenopathy and Yes no JVD Thyroid: Thyroid normal Carotids: no bruits Resp Effort & Inspection: normal respiratory effort and not tachypneic Auscultation: no crackles, no rales, no rhonchi and no wheezes Cardio Rate: regular rate Rhythm: regular rhythm Heart sounds: no murmurs and normal S1 and S2 GI Palpation (GI): Soft to palpation, nontender, no hepatomegaly and no splenomegaly Auscultation: normal bowel sounds Skin General skin exam: no rashes or lesions noted and dry skin Neuro General: oriented to person, oriented to place and oriented to time Cranial nerves: Yes Equal, round and reactive pupils present Speech: No Abnormal speech present Gait exam (Neuro): Normal gait present Motor exam (neuro): no tremor noted Extrem Right upper extremity: full ROM Left upper extremity: full ROM Right lower extremity: full ROM; no edema Left lower extremity: full ROM; no edema Psych Mental Status: mental status grossly normal Speech and movement: Normal speech and movement present Affect: normal affect Attitude: cooperative Thought process: Normal thought process present Coding Level of Care Code Est Pt Level 4 (26480) Diagnoses Undifferentiated connective tissue disease M35.9 Diaphragmatic hernia with obstruction, without gangrene K44.0 Obstruction and gangrene presence: with obstruction but without gangrene Mold exposure Z77.120 Assessment & Plan Assessment & Plan (1) Undifferentiated connective tissue disease: Code(s): M35.9 - Systemic involvement of connective tissue, unspecified Category: Medical Plan: The patient will continue to 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 Consideration of alternative medications to hydroxychloroquine will be discussed due to significant side effects. The patient is advised to explore short-term disability/ FMLA options through human resources to manage work-related challenges due to frequent flare-ups. (2) Diaphragmatic hernia: Code(s): K44.9 - Diaphragmatic hernia without obstruction or gangrene Category: Medical Qualifiers: Obstruction and gangrene presence: with obstruction but without gangrene Qualified Code(s): K44.0 - Diaphragmatic hernia with obstruction, without gangrene Plan: Continues with PPI therapy. Patient considering surgery for hiatal hernia repair. (3) Mold exposure: Code(s): Z77.120 - Contact with and (suspected) exposure to mold (toxic) Category: Social Hx Plan: The patient will undergo testing for mold exposure to assess its impact on health, particularly concerning memory loss. Orders: Orders Aspergillus Ag EIA 01/28/25 Z77.120 - Contact with and (suspected) exposure to mold (toxic) IgE Antibody (Anti-IgE IgG) 01/28/25 Z77.120 - Contact with and (suspected) exposure to mold (toxic) Resp Allergy Profile Region I 01/28/25 R05.9 - Cough, unspecified, Z77.120 - Contact with and (suspected) exposure to mold (toxic)
[2025-01-28 09:59] VITALS: BP 130/80; PULSE 87; RESP 18; TEMP 36.3; O2SAT 97; BMI 30.4
--- OUTSIDE RECORDS SUMMARY | 2025-01-28 10:56 | XMS_ITS | Clinical Summary ---
Author Organization [facility] Address [address] [place] [address] Phone Care Team Providers Care Life Care Planner Name Role Phone Quinton Casey Primary Care [...] of 3 - 19+ 3-dose series) 2012 HPV Vaccines (1 - 3-dose SCD M series) 2020 HIV Screening 03/18/2022 Hepatitis C Screening 03/18/2022 Social Influencers of Health Screening 03/18/2022 Depression Screening 04/15/2024 COVID-19 Vaccine (1 - 2023-2 5 season) 2024 Influenza Vaccine (#1) 2024 RSV Immunization Adult Patie nts (1 - 1-dose 75+ series) 2068 HIB Vaccines Aged Out No longer eligi [...] to complete this topic Insurance MEDICAID - [place] [facility] [place] [address] Care Teams Life Care Planner Relationship Specialty Start Date End Date Quinton Casey PA PCP - General Physician Central Office Maintainer 08/12/24
== END 2025-01-28 10:30 | disposition home or self-care (01) ==
LOC: HO.HMCH 09:32
PROVIDERS: PCP Physician Assistant; Visit Provider Physician Assistant
DX: M35.9 Systemic involvement of connective tissue, unspecified (principal); K44.0 Diaphragmatic hernia with obstruction, without gangrene; Z77.120 Contact with and (suspected) exposure to mold (toxic)

== ENCOUNTER → 2025-01-28 09:32 | Outpatient (BNVA) | payer OTHER, SELFPAY | PROVIDERS: PCP Physician Assistant; Visit Provider Physician Assistant | DX: K44.9 Diaphragmatic hernia without obstruction or gangrene (principal); M25.50 Pain in unspecified joint; M35.9 Systemic involvement of connective tissue, unspecified; K44.0 Diaphragmatic hernia with obstruction, without gangrene; R05.9 Cough, unspecified; Z77.120 Contact with and (suspected) exposure to mold (toxic) | CPT/HCPCS: 99212 ==

== ENCOUNTER 2025-02-20 12:56 | Emergency (ER) | payer OTHER, SELFPAY ==
--- NOTE | ~2025-02-20 | XR_ITS ---
CLINICAL HISTORY: chest pain 2 view chest x-ray. Comparison: None Findings: No consolidation or effusion. Cardiac and mediastinal contours are unremarkable. Bones unremarkable. Impression: 1. No acute pulmonary disease. This document has been electronically signed by: Naga Mancuso MD on 02/20/2025 13:46:44
--- NOTE | 2025-02-20 12:58 | ECG_ITS ---
Test Reason : CP Blood Pressure : */* mmHG Vent. Rate : 83 BPM Atrial Rate : 83 BPM P-R Int : 144 ms QRS Dur : 72 ms QT Int : 348 ms P-R-T Axes : 29 28 20 degrees QTcB Int : 408 ms Normal sinus rhythm Normal ECG No previous ECGs available Referred By: Generic ED Physician Electronically Signed By: Dennis Beltran
[2025-02-20 13:12] VITALS: BP 145/98; PULSE 90; RESP 18; TEMP 36.8; O2SAT 96; BMI 36.1
--- NOTE | 2025-02-20 13:15 | ED_ITS ---
HPI - General Adult General Chief complaint: Upper Respiratory Symptoms Stated complaint: severe CP Time Seen by Provider: 02/20/25 14:55 Source: patient and RN notes reviewed Mode of arrival: ambulatory Limitations: no limitations History of Present Illness ED Provider: ENRICO Yang HPI narrative: 29-year-old male with medical history of GERD, asthma presents to the ED due to 1 week of sore throat, productive cough with blood-tinged sputum, body aches, chills and chest tightness, and mild SOB. Patient reports he went to urgent care 2 days ago and was diagnosed with a viral illness and told to take Mucinex for phlegm production. Patient states he went back to work yesterday and began to feel worse. Patient states he woke up this morning with increased chest tightness that is exacerbated when coughing, and mild SOB. Denies recent travel, sick contacts, fevers, nausea, vomiting, headaches, visual changes, abdominal pain, diarrhea, black/tarry stool, urinary symptoms MD complaint: Sore throat, productive cough with blood-tinged sputum, body Related Data Home Medications ?Medication ?Instructions ?Recorded ?Confirmed omeprazole 40 mg-sodium 1 cap PO DAILY 09/17/2401/13 bicarbonate 1.1 gram capsule Previous Rx's ?Medication ?Instructions ?Recorded hydroxychloroquine 200 mg tablet 200 mg PO BID 90 days #180 tabs 12/08/24 (Plaquenil) azithromycin 500 mg tablet See Rx Instructions PO .COM PLEX #9 02/20/25 tabs prednisone 20 mg tablet 20 mg PO BID 5 days #10 tabs 02/20/25 Allergies Allergy/AdvReac Type Severity Reaction Status Date / Time shellfish derived Allergy Mild Unknown Verified 02/20/25 13:15 Review of Systems 2 Review of Systems: Yes all other systems are reviewed and are negative PMFSH Past Medical History Attestation statement: The following information was validated with the patient. Source: old records reviewed and nursing notes reviewed Medical History Asthma GERD (gastroesophageal reflux disease) Surgical History History of mandibular surgery Hx of colonoscopy Hx of cervical spine surgery Hx of appendectomy History of esophagogastroduodenoscopy (EGD) Family History Family History Maternal Uncle Colon cancer Maternal Grandmother Colon cancer Social History Social History Household Members Other:: brother Housing: Apartment Are you a primary memory care director to a significant other at home: No Do you presently have visiting nurse or other home services: No Alcohol intake: former Patient Tobacco Use Status: Former Tobacco user e-Cigarette/Vaping Use: Never Used Second Hand Smoke Exposure: No Advance Directives: No Advance Directives Information Provided: No service: No Current occupational status: employed 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 HEENT: ?NC, AT. MMM. EOMI, clear conjunctiva, oropharynx clear. NECK: ?Supple without lymphadenopathy.? No stiffness or restricted ROM. HEART:? Normal rate and regular rhythm, normal S1/S2, no m/r/g LUNGS:? CTAB, moving air well. No crackles, wheezes or ronchi are heard. EXTREMITIES: ?Without cyanosis, clubbing or edema. NEUROLOGICAL: ?Grossly nonfocal. Alert and oriented, moving all 4 extremities. Observed to ambulate with normal gait. Skin: ?Warm and dry without any rash. Course Course Course Narrative: Medical screening exam performed. Please refer to detailed history, exam, evaluation, and management by primary provider. Patient with chest pain and cough for the past several days, seen at urgent Care. Negative for COVID. Continued symptoms therefore to the ED. Afebrile. Medications Administered Discontinued Medications Generic Name Dose Route Start Last Admin Trade Name Freq PRN Reason Stop Dose Admin Acetaminophen 975 mg 02/20/25 15:10 02/20/25 15:50 Acetaminophen 325 Mg Tablet PO 02/20/25 15:11 975 mg ONCE ONE Administration Albuterol Sulfate 2.5 mg 02/20/25 15:33 02/20/25 15:37 Albuterol Sulfate (0.083%) 2.5 Mg/3 Ml Vial.Neb INHALE 02/20/25 15:34 2.5 mg ONCE ONE Administration Ketorolac Tromethamine 30 mg 02/20/25 15:10 02/20/25 15:49 Ketorolac Tromethamine 30 Mg/Ml Vial IM 02/20/25 15:11 30 mg ONCE ONE Administration Methylprednisolone Sodium Succinate 60 mg 02/20/25 15:16 02/20/25 15:50 Methylprednisolone Sod Succ 125 Mg/2 Ml Vial IM 02/20/25 15:17 60 mg ONCE ONE Administration Medical Decision Making Medical Decision Making [facility] Narrative: 29-year-old male with medical history of GERD, asthma presents to the ED due to 1 week of sore throat, productive cough with blood-tinged sputum, body aches, chills and chest tightness, and mild SOB. Patient reports he went to urgent care 2 days ago and was diagnosed with a viral illness and told to take Mucinex for phlegm production and given albuterol inhaler. Patient states he went back to work yesterday and began to feel worse. Patient states he woke up this morning with increased chest tightness that is exacerbated when coughing, and mild SOB. Denies recent travel, sick contacts VS on initial observation-BP 145/98, pulse rate of 90, respiratory rate of 18, afebrile with oral temp of 98.3?, O2 saturation 96% on room air. On physical exam patient is well-appearing, nontoxic appearing, no acute distress. Lungs are clear to auscultation bilaterally without expiratory wheeze, or rhonchi auscultated, no increased work of breathing, no accessory muscle use. Cardiac exam reveals a normal rate and rhythm without murmurs/rubs/gallops. Labs reveal leukocytosis of 11.0 without left shift, no evidence of anemia, no electrolyte abnormality. Viral serology negative, rapid strep negative. EKG reveals normal sinus rhythm without ST-elevation/depression, T-wave abnormality, lengthened QT, troponins x2 undetectable at <2.7, patient with chest tightness, no chest pain. CXR negative for consolidation, pneumothorax, pleural effusion 29-year-old male with 1 week of upper respiratory symptoms. Patient is afebrile, without hypoxia, tachycardia tachypnea. Patient medicated with 60 mg IM Solu-Medrol, 975 mg p.o. Tylenol, 30 mg IM Toradol, 5 mg Ventolin inhaler with significant improvement of his symptoms. Patient's symptoms are most likely due to bronchitis, due to patient's history of asthma, and feels like his symptoms are worsening will be discharged home with 7 day course of Azithromycin, and 5 days of 40 mg prednisone for inflammation. Patient has a albuterol inhaler at home that he uses. I counseled patient to alternate 500 mg of Tylenol and 400 mg of ibuprofen every 6 hours to manage sore throat, and body aches. I counseled patient to follow up with his primary care doctor, and on strict return precautions. Patient is in agreement with the plan. Differential Diagnosis Differential Diagnoses: The differential diagnosis associated with the presentation includes Viral illness COVID Flu RSV Pneumonia Bronchitis Admission/Observation Consideration of admission/observation: Escalation of care including admission/observation considered Lab Data MDM Lab Attestation statement: I reviewed the patient's lab results. 02/20/25 13:35 02/20/25 13:35 Labs: Lab Results 02/20/25 02/20/25 Range/Units 13:35 15:17 WBC 11.0 H (4.8-10.8) X10*3/uL RBC 4.81 (4.60-5.80) X10*6/uL Hgb 14.0 (14.0-18.0) g/dl Hct 42.6 (42.0-52.0) % MCV 88.6 (80.0-98.0) fL MCH 29.1 (27.0-33.0) pg MCHC 32.9 (31.0-36.0) g/dl RDW 12.5 (11.0-16.0) % Plt Count 339 (160-400) X10*3/uL MPV 9.6 (9.4-12.4) fL Immature Gran % (Auto) 1.5 H (0.0-0.4) % Neut % (Auto) 71.8 (45-73) % Lymph % (Auto) 17.8 L (20-40) % Meriwether % (Auto) 6.5 (2-11) % Eos % (Auto) 1.9 (0-4) % Baso % (Auto) 0.5 (0-2) % Lymph # (Auto) 2.0 (1.2-4.9) X10*3/uL Meriwether # (Auto) 0.7 (0.1-1.2) X10*3/uL Eos # (Auto) 0.2 (0.0-0.4) X10*3/uL Baso # (Auto) 0.1 (0.0-0.2) X10*3/uL Abs Immat Gran (auto) 0.17 H (0.00-0.03) X10*3/uL Absolute Neuts (auto) 7.9 (2.0-8.3) x10*3/uL Absolute Nucleated RBC 0.000 (0.0-0.012) X10*3/uL Nucleated RBC % (auto) 0.0 (0.0-0.2) /100WBC Sodium 142 (135-145) mmol/L Potassium 4.1 (3.3-5.1) mmol/L Chloride 105 (96-108) mmol/L Carbon Dioxide 28 (22-29) mmol/L Anion Gap 13 (12-20) BUN 13 (9-16) mg/dL Creatinine 0.83 (0.5-1.4) mg/dL Estim Creat Clear Calc 139.0 Estimated GFR > 60 Random Glucose 100 (60-115) mg/dL Calcium 9.5 (8.4-10.2) mg/dL Total Bilirubin 0.4 (0.0-1.0) mg/dL AST 35 (5-37) U/L ALT 62 H (0-40) U/L Alkaline Phosphatase 79 (39-117) U/L Troponin I High Sens < 2.7 < 2.7 (<3.5-35.0) ng/L Total Protein 7.9 (6.5-8.0) g/dL Albumin 5.0 (3.5-5.0) g/dL COVID-19 (GAUTAM) Negative (Negative) COVID-19 Clin Com See Note Influenza Type A (ADRIANNE) Negative (Negative) Influenza Type B (ADRIANNE) Negative (Negative) Influenza A & B Note See Note S. pyogenes GrpA ADRIANNE Negative (Negative) Independent Interpretation I performed an independent interpretation of an: EKG and Plain X-Ray Interpretation: I personally interpreted the EKG which reveals normal sinus rhythm without ST- elevation/depression, T-wave abnormality, lengthened QT Vent. Rate : 83 BPM Atrial Rate : 83 BPM P-R Int : 144 ms QRS Dur : 72 ms QT Int : 348 ms P-R-T Axes : 29 28 20 degrees QTcB Int : 408 ms Normal sinus rhythm Normal ECG No previous ECGs available I personally interpreted the CXR which was negative for consolidations, infiltrates, pneumothorax, pleural effusions, I agree with the radiologist's interpretation Radiology Impression Discussion of test interpretation with radiology: I have reviewed the radiologist's reading. Radiologist Impression: CXR Findings: No consolidation or effusion. Cardiac and mediastinal contours are unremarkable. Bones unremarkable. Impression: 1. No acute pulmonary disease. This document has been electronically signed by: Naga Mancuso MD on 02/20/2025 13:46:44 Dictated By: Naga Mancuso MD Signed By: <Electronically signed by Naga Mancuso MD in OV> 02/20/25 [id number] External Record Review External record reviewed: Inpatient record, Office record and Outpatient record Chronic Conditions Patient?s care impacted by: Other (Asthma,) Discharge Plan Discharge Clinical Impression: Bronchitis Patient Disposition: Home, Self-Care Additional Instructions: You were evaluated in the ED today due to flu-like symptoms. Your blood work has a very mild elevation in your white blood cell count suggestive of bacterial or viral illness. Your chest x-ray was negative for pneumonia or any other emergent pulmonary disease. Your physical exam was reassuring as there was no wheezing heard when listening to your lungs, you had adequate breath sounds. You were medicated in the department with 975 mg of Tylenol, 30 mg intramuscular injection of Toradol which is a strong NSAID, and 60 mg intramuscular injection of Solu-Medrol which is a steroid for anti inflammation, and an albuterol breathing treatment with significant improvement of your symptoms. Your symptoms are most likely due to bronchitis. Due to your symptoms worsening you are being prescribed a 7 day course of azithromycin which is an antibiotic, and a 5 day course of 40 mg prednisone which is a steroid for anti inflammation. Please complete the entire course of medication even if your symptoms improve. To manage pain and discomfort at home you can take 500 mg of Tylenol, and 400 mg of ibuprofen every 6 hours. You do not need to take anymore Tylenol or ibuprofen until 10:00 p.m. rory. Please follow up with your primary care doctor to ensure resolution of your symptoms. Please return to the emergency department if you experience fevers over 100.4? that are not managed by Tylenol/ibuprofen, chest pain, shortness of breath, difficulty breathing, increased work of breathing, worsening cough, persistent blood in the sputum, or any new/worsening/concerning symptoms. Prescriptions: New azithromycin 500 mg tablet See Rx Instructions .ROUTE .COMPLEX Qty: 9 0RF Rx Instructions: For 250 mg dose pack: take 500 mg today (day 1), then 250 mg for 4 days (days 2-5) prednisone 20 mg tablet 20 mg PO BID 5 Days Qty: 10 0RF No Action omeprazole-sodium bicarbonate 40-1.1 mg-gram Capsule 1 cap PO DAILY hydroxychloroquine [Plaquenil] 200 mg tablet 200 mg PO BID 90 Days Qty: 180 1RF Stand Alone Forms: Work/School Release Discharge Date/Time: 02/20/25 16:57 Print Language: German
--- OUTSIDE RECORDS SUMMARY | 2025-02-20 13:24 | XMS_ITS | Clinical Summary ---
Author Organization [facility] Address [address] [place] [address] Phone Care Team Providers Care Recycle Coordinator Name Role Phone Quinton Casey Primary [...] to complete this topic Insurance [place] [facility] PLAN Care Teams Recycle Coordinator Relationship Specialty Start Date End Date Quinton Casey PA PCP - General Physician Checker 08/12/24
[2025-02-20 13:42] LABS: MANUAL DIFF FLAG NO
[2025-02-20 13:45] LABS: Hematocrit 42.6 % (42.0-52.0); Hemoglobin 14.0 g/dl (14.0-18.0); Imm Gran Abs Auto 0.17 X10*3/uL (0.00-0.03); Imm Gran Pct Auto 1.5 % (0.0-0.4); Lymphocytes Absolute Auto 2.0 X10*3/uL (1.2-4.9); Mean Corpuscular HGB Conc 32.9 g/dl (31.0-36.0); Mean Corpuscular Hemoglobin 29.1 pg (27.0-33.0); Mean Corpuscular Volume 88.6 fL (80.0-98.0); NRBC Abs Auto 0.000 X10*3/uL (0.0-0.012); NRBC Pct Auto 0.0 /100WBC (0.0-0.2); Platelet Count 339 X10*3/uL (160-400); Red Blood Count 4.81 X10*6/uL (4.60-5.80); White Blood Count 11.0 X10*3/uL (4.8-10.8)
[2025-02-20 13:53] LABS: IDNOW Serial# 6674DD1D; Strep A Nucleic Acid Negative (Negative)
[2025-02-20 13:56] LABS: Alanine Aminotransferase 62 U/L (0-40); Albumin Level 5.0 g/dL (3.5-5.0); Alkaline Phosphatase 79 U/L (39-117); Anion Gap 13 (12-20); Aspartate Amino Transferase 35 U/L (5-37); Blood Urea Nitrogen 13 mg/dL (9-16); Calcium 9.5 mg/dL (8.4-10.2); Carbon Dioxide 28 mmol/L (22-29); Chloride 105 mmol/L (96-108); Creatinine Clr Calc Pharmacy 139.0; Estimated Glomerular Filt Rate > 60; Potassium 4.1 mmol/L (3.3-5.1); Sodium 142 mmol/L (135-145); Total Protein 7.9 g/dL (6.5-8.0)
[2025-02-20 13:59] LABS: COVID-19 Test Negative (Negative); IDNOW Serial# 16C4AD1C
[2025-02-20 14:00] LABS: IDNOW Serial# 152EDE1D; Influenza B2 Negative (Negative)
[2025-02-20 14:03] LABS: Troponin-I High Sensitivity < 2.7 ng/L (<3.5-35.0)
[2025-02-20] MEDS: Albuterol Sulfate (0.083%) 2.5 MG/3 ML VIAL.NEB INHALE (15:37)
[2025-02-20 15:38] VITALS: PULSE 90; RESP 18; O2SAT 96
[2025-02-20 15:51] LABS: Troponin-I High Sensitivity < 2.7 ng/L (<3.5-35.0)
[2025-02-20 16:55] VITALS: BP 127/78; PULSE 94; RESP 16; TEMP 36.9; O2SAT 97
== END 2025-02-20 16:57 | disposition home or self-care (01) ==
PROVIDERS: Physician Assistant; Emergency Provider Emergency Medicine Emergency Medical Services; PCP Physician Assistant
DX: J45.909 Unspecified asthma, uncomplicated (principal)
CPT/HCPCS: 36415; 71046; 80053; 84484; 85025; 87502; 87635; 87651; 93005; 94640; 96372; 99284; J1885; J2919

== ENCOUNTER → 2025-02-20 12:58 | Outpatient (BNV) | payer OTHER, SELFPAY | PROVIDERS: Emergency Provider Emergency Medicine Emergency Medical Services; PCP Physician Assistant; Visit Provider Internal Medicine Cardiovascular Disease | DX: R07.9 Chest pain, unspecified (principal) | CPT/HCPCS: 93010 ==

== ENCOUNTER → 2025-02-20 13:18 | Outpatient (BNV) | payer OTHER, SELFPAY | PROVIDERS: PCP Physician Assistant; Visit Provider Radiology Diagnostic Radiology | DX: R07.9 Chest pain, unspecified (principal) | CPT/HCPCS: 71046 ==